=== PATIENT | male | born 1955 | race Caucasian/White ===

== ENCOUNTER 2024-05-19 14:05 | Inpatient (IN) | payer MEDICARE, OTHER ==
--- NOTE | 2024-05-19 14:50 | ED ---
Extremity Problem HPI - General Source: patient, RN notes reviewed Mode of arrival: wheelchair Limitations: no limitations <Miryam Juan - Last Filed: 05/19/24 14:48> <Ivory Carson - Last Filed: 05/19/24 16:48> - General Chief complaint: Extremity Problem,Nontraumatic Stated complaint: foot infection-Transfer Time Seen by Provider: 05/19/24 14:48 - History of Present Illness Initial comments: Quick note: 69-year-old male transferred from [place] for evaluation of left foot infection. Patient states for about 2-1/2 weeks he has been noticing a redness and infection to his left toe. Patient is not diabetic. Denies any fevers or chills. (Miryam Juan) Pt is a 69-year-old male past medical history hypertension presenting for patient. Patient [facility]. He presented there for left foot infection that has been ongoing for 2 weeks. Patient states that it started as a small sore on the top of his foot that progressed to between his toenails. He and his thought is a fungal infection and have been treating it with topical antifungal which did not improve the infection. He has noticed worsening redness and swelling of the left foot extending up to left ankle. No history of diabetes. Currently rates pain as 9 out of 10. No fevers, chills, myalgias, nausea, vomiting or diarrhea. (Ivory Carson) - Related Data Allergies Allergy/AdvReac Type Severity Reaction Status Date / Time No Known Allergies Allergy Verified 05/19/24 15:46 Review of Systems ROS Other: All systems not noted in ROS Statement are negative. <Miryam Juan - Last Filed: 05/19/24 14:48> ROS Other: All systems not noted in ROS Statement are negative. <Ivory Carson - Last Filed: 05/19/24 16:48> ROS Statement: Those systems with pertinent positive or pertinent negative responses have been documented in the HPI. Past Medical History Past Medical History: Hypertension History of Any Multi-Drug Resistant Organisms: None Reported Past Surgical History: Cholecystectomy Past Psychological History: No Psychological Hx Reported Smoking Status: Current every day smoker Past Alcohol Use History: Daily Past Drug Use History: None Reported <Miryam Juan - Last Filed: 05/19/24 14:48> General Exam Limitations: no limitations <Miryam Juan - Last Filed: 05/19/24 14:48> <Ivory Carson - Last Filed: 05/19/24 16:48> - General Exam Comments Initial Comments: Visual Physical Exam Vital signs reviewed General: Well-appearing, nontoxic, no acute distress. Head: Normocephalic, atraumatic Eyes: PERRLA, EOMI ENT: Airway patent Chest: Nonlabored breathing Skin: No visual rash, normal skin tone Neuro: Alert and oriented 3 Musculoskeletal: No gross abnormalities (Miryam Juan) PE: CONSTITUTIONAL: No apparent distress, well appearing SKIN: Warm, dry, dry gangrene across the dorsal aspect of the first metatarsal extending down to the metatarsalphalangeal joint, across the top of the foot, with surrounding brownish discoloration; erythema extending up towards knee EYES: Pupils are equally round, extraocular movements intact without nystagmus, clear conjunctiva, non-icteric sclera HENT: Normocephalic, atraumatic, moist mucus membranes, oropharynx clear without exudates NECK: , Full range of motion, normal appearance PULMONARY: Clear to auscultation without wheezes, rhonchi, or rales, normal excursion, no accessory muscle use and no stridor CARDIOVASCULAR: Regular rate, rhythm, normal S1 and S2. No appreciated murmurs, rubs or gallops. Strong radial pulse with intact distal perfusion. 2+ DP pulse present in the left lower extremity, 1-2+ pitting edema in the left lower extremity GASTROINTESTINAL: Soft, non-tender, non-distended, no palpable masses, no rebound or guarding. No hepatosplenomegaly MUSCULOSKELETAL: Dry gangrene on the dorsal aspect of the left foot as noted above, edema of the distal left lower extremity extending up towards the knee as well as erythema, otherwise extremities have no gross deformity, no edema, redness, or swelling. NEUROLOGIC:_a/o x 3, GCS 15, normal mentation and speech. Moves all extremities x 4 without motor or sensory deficit PSYCHIATRIC:_normal mood and affect, thought process is clear and linear (Ivory Carson) Course Vital Signs 05/19/24 14:08 Temperature 99.4 F Pulse Rate 86 Respiratory 20 Rate Blood Pressure 125/80 O2 Sat by Pulse 99 Oximetry Medical Decision Making <Miryam Juan - Last Filed: 05/19/24 14:48> - Lab Data Result diagrams: 05/19/24 15:39 <Ivory Carson - Last Filed: 05/19/24 16:48> - Medical Decision Making I performed the quick note portion of this chart. Electronically signed by Miryam Juan PA-C (Miryam Juan) Paper chart brought with patient from transferring facility, [facility]. X-ray performed of the left foot showed concerns for osteomyelitis in the first metatarsal. Patient was reported to have an elevated white blood cell count though I was not able to find white blood cell count on paperwork. Patient was given dose of vancomycin and sent here for further treatment Was pt. sent in by a medical professional or institution ([facility], [facility], urgent care, hospital, or intermediate...) When possible be specific @ -Sent from [facility] Did you speak to anyone other than the patient for history (EMS, parent, family, police, friend...)? What history was obtained from this source @ -With patient's assisted in providing history Did you review nursing and triage notes (agree or disagree)? Why? @ -I reviewed and agree with nursing and triage notes Were old charts reviewed (outside hosp., previous admission, EMS record, old EKG, old radiological studies, urgent care reports/EKG's, intermediate records)? Report findings @ -No old charts available for review with exception of paper chart as noted above Differential Diagnosis (chest pain, altered mental status, abdominal pain women, abdominal pain men, vaginal bleeding, weakness, fever, dyspnea, syncope, headache, dizziness, GI bleed, back pain, seizure, CVA, palpatations, mental health, musculoskeletal)? @ -Diagnosis remains broad however top considerations include cellulitis, abscess, osteomyelitis, dry gangrene this is not all-inclusive list EKG interpreted by me (3pts min.). @ -As above X-rays interpreted by me (1pt min.). @ -None done CT interpreted by me (1pt min.). @ -None done U/S interpreted by me (1pt. min.). @ -None done What testing was considered but not performed or refused? (CT, X-rays, U/S, labs)? Why? @ -None What meds were considered but not given or refused? Why? @ -None Did you discuss the management of the patient with other professionals (professionals i.e. , PA, [facility], lab, RT, psych nurse, socially responsible investment adviser, oiler bander, teacher, contracting officer, sample case porter)? Give summary @ -No Was smoking cessation discussed for >3mins.? @ -No Was critical care preformed (if so, how long)? @ -No Were there social determinants of health that impacted care today? How? (Homelessness, low income, unemployed, alcoholism, drug addiction, transportation, low edu. Level, literacy, decrease access to med. care, mcc, rehab)? @ -No Was there de-escalation of care discussed even if they declined (Discuss DNR or withdrawal of care, Hospice)? @ -No What co-morbidities impacted this encounter? (DM, HTN, Smoking, COPD, CAD, Cancer, CVA, ARF, Chemo, Hep., AIDS, mental health diagnosis, sleep apnea, morbid obesity)? @ -Hypertension Was patient admitted / discharged? Hospital course, mention meds given and route, prescriptions, significant lab abnormalities, going to OR and other pertinent info. @Admission - Patient is a previously healthy 57-year-old male presenting as a transfer from [facility] due to concerns for osteomyelitis in the le ft foot. On my assessment patient is nontoxic and well-appearing. Dry gangrene visible on the dorsal aspect of the left foot. Extremity is neurovascularly intact, tender and edematous. Ordered additional dose vancomycin, cefepime, inflammatory markers CBC and CMP as well as pain control. Plan for admission. Patient agreeable with plan. I discussed with ANITA Whitehead who accepts for admission. Undiagnosed new problem with uncertain prognosis? @ -No Drug Therapy requiring intensive monitoring for toxicity (Heparin, Nitro, Insulin, Cardizem)? @ -Vancomycin Were any procedures done? @ -No Diagnosis/symptom? @ -Osteomyelitis Acute, or Chronic, or Acute on Chronic? @ -Acute Uncomplicated (without systemic symptoms) or Complicated (systemic symptoms)? @Complicated Side effects of treatment? @ -No Exacerbation, Progression, or Severe Exacerbation? @ -No Poses a threat to life or bodily function? How? (Chest pain, [place], [place], pneumonia, PE, COPD, DKA, ARF, appy, cholecystitis, CVA, Diverticulitis, Homicidal, Suicidal, threat to staff... and all critical care pts) @ -[Yes, if allowed to progress patient could lose left lower extremity, sepsis (Ivory Carson) - Lab Data Lab Results 05/19/24 Range/Units 15:39 WBC 11.6 H (3.8-10.6) k/uL RBC 4.16 L (4.30-5.90) m/uL Hgb 13.2 (13.0-17.5) gm/dL Hct 39.1 (39.0-53.0) % MCV 94.1 (80.0-100.0) fL MCH 31.7 (25.0-35.0) pg MCHC 33.7 (31.0-37.0) g/dL RDW 12.2 (11.5-15.5) % Plt Count 472 H (150-450) k/uL MPV 6.5 Neutrophils % 76 % Lymphocytes % 11 % Monocytes % 10 % Eosinophils % 1 % Basophils % 0 % Neutrophils # 8.7 H (1.3-7.7) k/uL Lymphocytes # 1.3 (1.0-4.8) k/uL Monocytes # 1.1 H (0-1.0) k/uL Eosinophils # 0.1 (0-0.7) k/uL Basophils # 0.0 (0-0.2) k/uL Disposition <Miryam Juan - Last Filed: 05/19/24 14:48> <Ivory Carson - Last Filed: 05/19/24 16:48> Clinical Impression: Osteomyelitis Disposition: ADMITTED IP TO THIS HOSP Condition: Stable Referrals: Valentin Manrique MD [Primary Care Provider] - 1-2 days
[2024-05-19] MEDS ORDERED: VANCOMYCIN IV PER PHARMACY 1 EACH MISC MISCELLANE PRN (15:41)
[2024-05-19] MEDS: ONDANSETRON 4 MG/2 ML VIAL IVP STA (15:53)
[2024-05-19] MEDS: MORPHINE SULFATE 4 MG/ML SYRINGE IVP STA (15:56)
[2024-05-19] MEDS: KETOROLAC 15 MG/ML 1 ML VIAL IVP STA (15:58)
[2024-05-19] MEDS: CEFEPIME 2 GM in SODIUM CHLORIDE 0.9% 100 ML IVPB ONE (16:03)
[2024-05-19 16:25] LABS: Basophils % (A) 0 %; Eosinophils # (A) 0.1 k/uL (0-0.7); Eosinophils % (A) 1 %; HCT 39.1 % (39.0-53.0); HGB 13.2 gm/dL (13.0-17.5); Lymphocytes # (A) 1.3 k/uL (1.0-4.8); Lymphocytes % (A) 11 %; MCH 31.7 pg (25.0-35.0); MCHC 33.7 g/dL (31.0-37.0); MCV 94.1 fL (80.0-100.0); Mean Platelet Volume 6.5; Monocytes # (A) 1.1 k/uL (0-1.0); Monocytes % (A) 10 %; Neutrophils # (A) 8.7 k/uL (1.3-7.7); Neutrophils % (A) 76 %; Platelet Count 472 k/uL (150-450); RBC 4.16 m/uL (4.30-5.90); RDW 12.2 % (11.5-15.5); WBC 11.6 k/uL (3.8-10.6)
[2024-05-19 16:42] LABS: ALT 17 U/L (4-49); AST 27 U/L (17-59); African American GFR (CKD) >90 (>60 ml/min/1.73 sqM); Albumin 4.2 g/dL (3.5-5.0); Alkaline Phosphatase 80 U/L (38-126); Anion Gap 10 mmol/L; Blood Urea Nitrogen 10 mg/dL (9-20); Calcium 9.5 mg/dL (8.4-10.2); Carbon Dioxide 17 mmol/L (22-30); Chloride 100 mmol/L (98-107); Glucose 99 mg/dL (74-99); Non-African American GFR(CKD) >90 (>60 ml/min/1.73 sqM); Potassium 5.1 mmol/L (3.5-5.1); Sodium 127 mmol/L (137-145); Total Bilirubin 0.7 mg/dL (0.2-1.3)
[2024-05-19 16:57] LABS: C Reactive Protein 3.4 mg/dL (<1.0)
[2024-05-19] MEDS: VANCOMYCIN 1,500 MG in SODIUM CHLORIDE 0.9% 500 ML 500 ML IVPB STA (17:16)
[2024-05-19] MEDS: NICOTINE 14MG/24HR PATCH TRANSDERM SCH (17:16)
[2024-05-19] MEDS ORDERED: NALOXONE 0.4 MG/ML 1 ML VIAL IV PRN (17:37)
[2024-05-19] MEDS: HEPARIN SODIUM,PORCINE 5,000 UNIT/ML 1 ML VIAL SQ SCH (20:10)
[2024-05-19] MEDS: CEFEPIME 2 GM in SODIUM CHLORIDE 0.9% 100 ML IVPB SCH (22:37)
[2024-05-19] MEDS: HYDROcodone/APAP 5-325MG 1 EACH TAB PO PRN (22:39)
[2024-05-20 03:47] LABS: Erythrocyte Sedimentation Rate 43 mm/Hr (0-20)
[2024-05-20] MEDS: VANCOMYCIN 1,500 MG in SODIUM CHLORIDE 0.9% 500 ML 500 ML IVPB SCH (05:59)
[2024-05-20] MEDS ORDERED: ACETAMINOPHEN TAB 500 MG TAB PO PRN (07:46)
[2024-05-20] MEDS: amLODIPine 10 MG TAB PO SCH (08:40)
[2024-05-20 08:47] LABS: Basophils # (A) 0.07 X 10*3/uL (0.00-0.10); Eosinophils # (A) 0.18 X 10*3/uL (0.04-0.35); Eosinophils % (A) 2.5 %; HCT 35.2 % (39.6-50.0); HGB 12.3 g/dL (13.0-17.0); Lymphocytes # (A) 1.46 X 10*3/uL (0.90-5.00); Lymphocytes % (A) 20.3 %; MCH 31.9 pg (27.0-32.0); MCHC 34.9 g/dL (32.0-37.0); MCV 91.4 FL (80.0-97.0); Mean Platelet Volume 8.5 FL (9.5-12.2); Monocytes # (A) 1.18 X 10*3/uL (0.20-1.00); Monocytes % (A) 16.4 %; NRBC Per 100 WBC 0 X 10*3/uL (0.00-0.01); Neutrophils # (A) 4.28 X 10*3/uL (1.80-7.70); Neutrophils % (A) 59.4 %; Platelet Count 412 X 10*3/uL (140-440); RBC 3.85 X 10*6/uL (4.40-5.60)
--- NOTE | 2024-05-20 09:11 | P.CONS ---
History of Present Illness - Reason for Consult Consult date: 05/19/24 Cellulitis Requesting physician: Khanh Quinones - Chief Complaint Left big toe and foot swelling and discoloration x 2 weeks - History of Present Illness Patient is a 69-year-old male with a past medical history significant for hypertension current everyday smoker and this patient has been dealing with a left big toe nail fungal infection that subsequently fell off however the patient has been dealing with the left big toe discoloration with some swelling and redness that seem to be extending from the left big toe to the dorsal aspect of the left foot patient symptom has been going on for about 2-1/2 weeks patient denies any history of any trauma he did have dull aching pain at times sharp moderate intensity without radiation did have minimal drainage main concern has been discoloration and redness along with some drainage denies high-grade fever on presentation to the hospital the patient did have a low-grade fever of 99.4 F patient was nontachycardic hypotensive or hypoxic he did have white count of 11.6 with a left shift creatinine 0.67 electrolytes are normal liver enzymes normal patient has been started on vancomycin and cefepime infectious disease was consulted for further management of antibiotic therapy Review of Systems Positive point and negatives has been mentioned in the HPI, complete review of systems was performed and all other systems are negative Past Medical History Past Medical History: Hypertension History of Any Multi-Drug Resistant Organisms: None Reported Past Surgical History: Cholecystectomy Past Psychological History: No Psychological Hx Reported Smoking Status: Current every day smoker Past Alcohol Use History: Daily Past Drug Use History: None Reported Medications and Allergies Home Medications Medication Instructions Recorded Confirmed Type Acetaminophen Tab [Tylenol Tab] 1,000 mg PO Q6HR PRN 05/19/24 05/19/24 History Aleve Back & Muscle Pain 1 tab PO BID 05/19/24 05/19/24 History Ascorbic Acid [Vitamin C] 500 mg PO W/SUPPER 05/19/24 05/19/24 History Cholecalciferol [Vitamin D3 (25 25 mcg PO W/SUPPER 05/19/24 05/19/24 History Mcg = 1000 Iu)] Elderberry(Unknown Dose) 1 tab PO W/SUPPER 05/19/24 05/19/24 History Magnesium Oxide [Magnesium] 500 mg PO W/SUPPER 05/19/24 05/19/24 History Mv-Min/Folic/K1/Lycopen/Lutein 1 tab PO W/SUPPER 05/19/24 05/19/24 History [Centrum Silver Men Tablet] Zinc Gluconate [Zinc] 50 mg PO W/SUPPER 05/19/24 05/19/24 History amLODIPine [Norvasc] 10 mg PO DAILY 05/19/24 05/19/24 History lisinopriL 40 mg PO HS 05/19/24 05/19/24 History Allergies Allergy/AdvReac Type Severity Reaction Status Date / Time No Known Allergies Allergy Verified 05/19/24 15:46 Physical Exam Vitals: Vital Signs Temp Pulse Resp BP Pulse Ox 05/19/24 14:08 99.4 F 86 20 125/80 99 Intake and Output 05/19/24 05/19/24 05/19/24 06:59 14:59 22:59 Other: Weight 78.925 kg GENERAL DESCRIPTION: Elderly male lying in bed, no distress. No tachypnea or accessory muscle of respiration use. HEENT: Shows Pallor , no scleral icterus. Oral mucous membrane is dry. No ph aryngeal erythema or thrush NECK: Trachea central, no thyromegaly. LUNGS: Unlabored breathing. Clear to auscultation anteriorly. No wheeze or crackle. HEART: S1, S2, regular rate and rhythm. No loud murmur ABDOMEN: Soft, no tenderness , guarding or rigidity, no organomegaly EXTREMITIES: Left great toe dorsum did have a dried out skin he did have maceration in the first toe web and minimal erythema SKIN: No rash, no masses palpable. NEUROLOGICAL: The patient is awake, alert, oriented x3, mood and affect normal. Results CBC & Chem 7: 05/20/24 02:39 05/19/24 15:39 Labs: Abnormal Lab Results - Last 24 Hours (Table) 05/19/24 05/19/24 Range/Units 15:39 15:39 WBC 11.6 H (3.8-10.6) k/uL RBC 4.16 L (4.30-5.90) m/uL Plt Count 472 H (150-450) k/uL Neutrophils # 8.7 H (1.3-7.7) k/uL Monocytes # 1.1 H (0-1.0) k/uL Sodium 127 L (137-145) mmol/L Carbon Dioxide 17 L (22-30) mmol/L C-Reactive Protein 3.4 H (<1.0) mg/dL Assessment and Plan (1) Cellulitis of left foot Current Visit: Yes Status: Acute Code(s): L03.116 - CELLULITIS OF LEFT LOWER LIMB SNOMED Code(s): 47329674372949210 Plan: 1patient presenting to the hospital with the left foot big toe dorsal ulceration and concern for cellulitis that has been going on for the last 2 weeks we will need to cover for the gram-positive skin sha and less likely gram-negative infection. 2await vascular surgery evaluation for debridement and deep culture. 3vancomycin pharmacy to dose target trough of 15 while watching kidney function and Vanco trough closely and cefepime should provide adequate broad- spectrum antibiotic coverage while waiting for the workup to be completed. 4-nystatin powder between the toe webs We will follow on clinical condition and cultures to further adjust medication if needed Thank you for this consultation we will follow the patient along with you Dictation was produced using [employer] dictation software. please excuse any grammatical, word or spelling errors. Time with Patient: Greater than 30
[2024-05-20 09:56] LABS: BUN/Creat Ratio 13.12 Ratio (12.00-20.00); Blood Urea Nitrogen 10.5 mg/dL (9.0-27.0); Chloride 100 mmol/L (96-109); Glucose 93 mg/dL (70-110); Potassium 4.8 mmol/L (3.5-5.5); Sodium 132 mmol/L (135-145)
[2024-05-20 10:18] LABS: Basophils % (A) 0 %; Eosinophils # (A) 0.1 k/uL (0-0.7); Eosinophils % (A) 1 %; HCT 37.1 % (39.0-53.0); HGB 12.5 gm/dL (13.0-17.5); Lymphocytes # (A) 1.2 k/uL (1.0-4.8); Lymphocytes % (A) 12 %; MCH 31.4 pg (25.0-35.0); MCHC 33.7 g/dL (31.0-37.0); MCV 93.3 fL (80.0-100.0); Monocytes % (A) 10 %; Neutrophils # (A) 7.6 k/uL (1.3-7.7); Neutrophils % (A) 76 %; Platelet Count 417 k/uL (150-450); RBC 3.98 m/uL (4.30-5.90); RDW 12.8 % (11.5-15.5)
--- NOTE | 2024-05-20 12:25 | P.GSCN ---
History of Present Illness Consult date: 05/20/24 Reason for Consult: Left foot wound Requesting physician: Brandon Park History of present illness: This a pleasant 69-year-old male who was transferred from [facility] with concerns of a left foot infection. He has a past medical history including hypertension, arthritis, and current half pack per day smoker for greater than 50 years. He states he believes infection started 2 to 3 months ago when he was having issues with yeast at his great toenail which eventually had fallen off. He later noticed area in between his great toe and second toe which again he just thought was more of an athlete's foot, fungal infection. States that him and his had been treating it with Epsom salt soaks and even Listerine as they thought that this was all secondary to fungal infection. Left foot was becoming more red, swollen painful and area of wound was increasing. He became concerned and went to [facility]. He was seen there and and transferred to this facility for further evaluation and workup. He denies any fevers or chills. States foot is painful. Has had lower extremity swelling. Denies any previous history of known peripheral arterial disease. Patient was seen by infectious disease who consulted with vascular surgery for surgical debridement and deep tissue cultures. Patient is currently on IV vancomycin and cefepime. He did have low-grade fever on admission of 99.4, he has been afebrile since. Admitting labs presented with leukocytosis, now resolved. Review of Systems A 14 point review systems was completed all pertinent positives and negatives as stated in the HPI. Past Medical History Past Medical History: Hypertension History of Any Multi-Drug Resistant Organisms: None Reported Past Surgical History: Cholecystectomy Past Psychological History: No Psychological Hx Reported Smoking Status: Current every day smoker Past Alcohol Use History: Daily Past Drug Use History: None Reported Medications and Allergies Home Medications Medication Instructions Recorded Confirmed Type Acetaminophen Tab [Tylenol Tab] 1,000 mg PO Q6HR PRN 05/19/24 05/19/24 History Aleve Back & Muscle Pain 1 tab PO BID 05/19/24 05/19/24 History Ascorbic Acid [Vitamin C] 500 mg PO W/SUPPER 05/19/24 05/19/24 History Cholecalciferol [Vitamin D3 (25 25 mcg PO W/SUPPER 05/19/24 05/19/24 History Mcg = 1000 Iu)] Elderberry(Unknown Dose) 1 tab PO W/SUPPER 05/19/24 05/19/24 History Magnesium Oxide [Magnesium] 500 mg PO W/SUPPER 05/19/24 05/19/24 History Mv-Min/Folic/K1/Lycopen/Lutein 1 tab PO W/SUPPER 05/19/24 05/19/24 History [Centrum Silver Men Tablet] Zinc Gluconate [Zinc] 50 mg PO W/SUPPER 05/19/24 05/19/24 History amLODIPine [Norvasc] 10 mg PO DAILY 05/19/24 05/19/24 History lisinopriL 40 mg PO HS 05/19/24 05/19/24 History Allergies Allergy/AdvReac Type Severity Reaction Status Date / Time No Known Allergies Allergy Verified 05/19/24 15:46 Surgical - Exam Vital Signs Temp Pulse Resp BP Pulse Ox 99.4 F 86 20 125/80 99 05/19/24 14:08 05/19/24 14:08 05/19/24 14:08 05/19/24 14:08 05/19/24 14:08 General appearance: The patient is alert, oriented, appears in no acute distr ess. HET: Head is normocephalic and atraumatic. Pupils are equal and reactive. Neck: Supple. Heart: Regular. Lungs: Equal expansion, normal respiratory effort. Abdomen: Soft, nontender, nondistended. Extremities: Right lower extremity without any swelling or edema, warm to the touch with palpable DP and PT pulse. Left lower extremity with +1-2 pitting edema, erythema with wound with nonviable tissue over dorsal aspect of foot and in between great toe and second toe with drainage. Great toe is cool to the touch, dusky. Foot is tender to palpation. Nonpalpable PT and DP pulse. Doppler signals present. Neurological: No focal deficits. Strength and sensation are grossly intact. Results - Labs 05/20/24 09:39 05/20/24 02:39 Abnormal Lab Results - Last 24 Hours (Table) 05/19/24 05/19/24 05/20/24 Range/Units 15:39 15:39 02:39 WBC 11.6 H (3.8-10.6) k/uL RBC 4.16 L 3.85 L (4.30-5.90) m/uL Hgb 12.3 L (13.0-17.0) g/dL Hct 35.2 L (39.6-50.0) % Plt Count 472 H (150-450) k/uL MPV 8.5 L (9.5-12.2) FL Neutrophils # 8.7 H (1.3-7.7) k/uL Monocytes # 1.1 H 1.18 H (0-1.0) k/uL ESR 43 H (0-20) mm/Hr Sodium 127 L (137-145) mmol/L Carbon Dioxide 17 L (22-30) mmol/L C-Reactive Protein 3.4 H (<1.0) mg/dL 05/20/24 05/20/24 Range/Units 02:39 09:39 WBC (3.8-10.6) k/uL RBC 3.98 L (4.30-5.90) m/uL Hgb 12.5 L (13.0-17.0) g/dL Hct 37.1 L (39.6-50.0) % Plt Count (150-450) k/uL MPV (9.5-12.2) FL Neutrophils # (1.3-7.7) k/uL Monocytes # (0-1.0) k/uL ESR (0-20) mm/Hr Sodium 132 L (137-145) mmol/L Carbon Dioxide 21.0 L (22-30) mmol/L C-Reactive Protein (<1.0) mg/dL Microbiology - Last 24 Hours (Table) 05/19/24 16:12 Gram Stain - Preliminary Foot - Left Diabetes panel 05/19/24 05/20/24 Range/Units 15:39 02:39 Sodium 127 L 132 L (137-145) mmol/L Potassium 5.1 4.8 (3.5-5.1) mmol/L Chloride 100 100 (98-107) mmol/L Carbon Dioxide 17 L 21.0 L (22-30) mmol/L BUN 10 10.5 (9-20) mg/dL Creatinine 0.67 0.8 (0.66-1.25) mg/dL Glucose 99 93 (74-99) mg/dL Calcium 9.5 9.0 (8.4-10.2) mg/dL AST 27 (17-59) U/L ALT 17 (4-49) U/L Alkaline Phosphatase 80 (38-126) U/L Total Protein 7.0 (6.3-8.2) g/dL Albumin 4.2 (3.5-5.0) g/dL Calcium panel 05/19/24 05/20/24 Range/Units 15:39 02:39 Calcium 9.5 9.0 (8.4-10.2) mg/dL Albumin 4.2 (3.5-5.0) g/dL Pituitary panel 05/19/24 05/20/24 Range/Units 15:39 02:39 Sodium 127 L 132 L (137-145) mmol/L Potassium 5.1 4.8 (3.5-5.1) mmol/L Chloride 100 100 (98-107) mmol/L Carbon Dioxide 17 L 21.0 L (22-30) mmol/L BUN 10 10.5 (9-20) mg/dL Creatinine 0.67 0.8 (0.66-1.25) mg/dL Glucose 99 93 (74-99) mg/dL Calcium 9.5 9.0 (8.4-10.2) mg/dL Adrenal panel 05/19/24 05/20/24 Range/Units 15:39 02:39 Sodium 127 L 132 L (137-145) mmol/L Potassium 5.1 4.8 (3.5-5.1) mmol/L Chloride 100 100 (98-107) mmol/L Carbon Dioxide 17 L 21.0 L (22-30) mmol/L BUN 10 10.5 (9-20) mg/dL Creatinine 0.67 0.8 (0.66-1.25) mg/dL Glucose 99 93 (74-99) mg/dL Calcium 9.5 9.0 (8.4-10.2) mg/dL Total Bilirubin 0.7 (0.2-1.3) mg/dL AST 27 (17-59) U/L ALT 17 (4-49) U/L Alkaline Phosphatase 80 (38-126) U/L Total Protein 7.0 (6.3-8.2) g/dL Albumin 4.2 (3.5-5.0) g/dL Assessment and Plan Assessment: 1. Nonhealing infected left foot wound 2. Left lower extremity cellulitis 3. Chronic tobacco use 4. Hypertension Plan: 1. Make n.p.o. 2. Will order ABIs 3. Plan for left foot surgical debridement with deep tissue cultures with possible left great toe amputation today 4. Recommend smoking cessation, patient currently has nicotine patches ordered 5. Continue with antibiotic recommendations per infectious disease Thank you for this consultation, we will continue to follow. The impression and plan of care has been dictated as directed. I performed a history and examination of this patient, discussed the same with the dictator. I agree with the dictator's note ,documented as a scribe. Any additional findings or plans will be noted.
[2024-05-20] MEDS: HYDROmorphone 0.5 MG/0.5 ML SYRINGE IVP PRN ×2 (12:57→17:00)
--- NOTE | 2024-05-20 14:13 | P.HPIM ---
History of Present Illness H&P Date: 05/20/24 Patient is a 69-year-old male with past medical history of hypertension presented to the emergency department due to left foot infection. He states that he has had ongoing redness and infection in his left great toe for 2.5 weeks. He states that it started as a small sore on the top of his foot that progressed to between his first and second toes. Him and his have been treating it with topical antifungal with no relief. He endorses worsening redness and swelling of the left foot extending up to the left mid-leg and dull, aching pain without radiation. He ambulates well normally with a cane and has full sensation of his feet. He denies fever, chills, nausea, vomiting, chest pain, dyspnea. No images were obtained. WBCs 11.6, hemoglobin 13.2, platelets 472, ESR 43, sodium 127, potassium 5.1, CO2 17, creatinine 0.67, CRP 3.4. Afebrile, normotensive, saturating well on room air. ED documentation reviewed. Review of systems: Pertinent positives and negatives as discussed in HPI, a complete review of systems was performed and all other systems are negative. Family history: Unsure of his family history Social history: Tobacco: Everyday smoker 1/2 ppd 50 years Alcohol: Daily 4-5 beers Recreational drugs: Denies Travel: Denies Occupation: Retired Physical examination: Vital signs are reviewed. General: No acute distress. AOx4. HEENT: Head exam is unremarkable. EOMI bilaterally. ACs patent. Nares patent. Lungs: Bilateral breath sounds present; no rhonchi, wheezes, or rales. Heart: Rate and rhythm are regular. S1-S2 present. No murmur/rub/gallops. Abdomen: Soft, nontender, nondistended. Bowel sounds present. Extremities: No edema present on the right lower extremity. Symmetric movement. Left foot wrapped-dry gangrene on the dorsal sole aspect of the left foot reported, edema of the left lower extremity extending towards the knee with erythema. Psych: Normal affect and mood. Cooperative. Assessment/Plan: Cellulitis Nonhealing left foot wound Vancomycin and cefepime started Monitor CBC/BMP Vascular surgery consulted Infectious disease following Hypertension Continue home medications DVT prophylaxis: Heparin Chronic conditions: Hypertension The patient is admitted with an anticipated more than than 2 midnight stay for evaluation of cellulitis CODE STATUS: Full code Discussed with: Patient Anticipated discharge place: Home Past Medical History Past Medical History: Hypertension History of Any Multi-Drug Resistant Organisms: None Reported Past Surgical History: Cholecystectomy Past Psychological History: No Psychological Hx Reported Smoking Status: Current every day smoker Past Alcohol Use History: Daily Past Drug Use History: None Reported Medications and Allergies Home Medications Medication Instructions Recorded Confirmed Type Acetaminophen Tab [Tylenol Tab] 1,000 mg PO Q6HR PRN 05/19/24 05/19/24 History Aleve Back & Muscle Pain 1 tab PO BID 05/19/24 05/19/24 History Ascorbic Acid [Vitamin C] 500 mg PO W/SUPPER 05/19/24 05/19/24 History Cholecalciferol [Vitamin D3 (25 25 mcg PO W/SUPPER 05/19/24 05/19/24 History Mcg = 1000 Iu)] Elderberry(Unknown Dose) 1 tab PO W/SUPPER 05/19/24 05/19/24 History Magnesium Oxide [Magnesium] 500 mg PO W/SUPPER 05/19/24 05/19/24 History Mv-Min/Folic/K1/Lycopen/Lutein 1 tab PO W/SUPPER 05/19/24 05/19/24 History [Centrum Silver Men Tablet] Zinc Gluconate [Zinc] 50 mg PO W/SUPPER 05/19/24 05/19/24 History amLODIPine [Norvasc] 10 mg PO DAILY 05/19/24 05/19/24 History lisinopriL 40 mg PO HS 05/19/24 05/19/24 History Allergies Allergy/AdvReac Type Severity Reaction Status Date / Time No Known Allergies Allergy Verified 05/19/24 15:46 Physical Exam Vitals: Vital Signs Temp Pulse Pulse Resp BP BP Pulse Ox 05/20/24 01:04 97.7 F 74 16 144/72 96 05/19/24 21:03 98.5 F 67 17 124/62 94 L 05/19/24 18:42 99.1 F 77 16 108/62 97 05/19/24 14:08 99.4 F 86 20 125/80 99 Intake and Output 05/19/24 05/20/24 05/20/24 22:59 06:59 14:59 Other: Voiding Method Toilet # Voids 1 Weight 78.925 kg Results CBC & Chem 7: 05/20/24 09:39 05/20/24 02:39 Labs: Abnormal Lab Results - Last 24 Hours (Table) 05/19/24 05/19/24 Range/Units 15:39 15:39 WBC 11.6 H (3.8-10.6) k/uL RBC 4.16 L (4.30-5.90) m/uL Plt Count 472 H (150-450) k/uL Neutrophils # 8.7 H (1.3-7.7) k/uL Monocytes # 1.1 H (0-1.0) k/uL ESR 43 H (0-20) mm/Hr Sodium 127 L (137-145) mmol/L Carbon Dioxide 17 L (22-30) mmol/L C-Reactive Protein 3.4 H (<1.0) mg/dL Thrombosis Risk Factor Assmnt - Choose All That Apply Any of the Below Risk Factors Present?: No Other Risk Factors: No Other congenital or acquired thrombophilia - If yes, enter type in comment: No Thrombosis Risk Factor Assessment Level: Very Low Risk
--- NOTE | 2024-05-20 14:51 | HP ---
HISTORY AND PHYSICAL CHIEF COMPLAINT: Pain and swelling, infection of the left foot. HISTORY OF PRESENT ILLNESS: This is a 69-year-old gentleman with a past medical history of hypertension, was noted to have a fungal infection of the great toe on the left side. The patient has noted increasing pain and swelling and erythema for the last several days and the patient and family used some socks including antibacterial antifungal solutions. Because of lack of improvement, the patient was referred and the patient is being admitted for further evaluation and treatment. There is no history of any fever, rigors, or chills at this time. The patient has history of EtOH and smoking also. PAST MEDICAL HISTORY: Hypertension. Rest of the history and rest of the chart is also reviewed. HOME MEDICATIONS: Reviewed include lisinopril. Dose and rest of the medications noted. ALLERGIES: None. FAMILY HISTORY: No history of heart disease or strokes in the family. SOCIAL HISTORY: History of alcohol and smoking as mentioned earlier. REVIEW OF SYSTEMS: Fourteen-point review is negative except as mentioned earlier. PHYSICAL EXAMINATION: VITAL SIGNS: Pulse is 86, blood pressure 110/80, respirations 20. HEENT: Conjunctivae normal. NECK: No JVD. CARDIOVASCULAR: S1, S2. RESPIRATIONS: Breath sounds diminished at the bases. No rhonchi. No crackles. ABDOMEN: Soft, nontender. LEGS: Significant pain and swelling and erythema, tenderness and hyperesthesia of the left foot present. SKIN: As mentioned earlier. JOINTS: No active deforming arthropathy. LABORATORY DATA: Awaited. ASSESSMENT: 1. Severe left foot infection with failure of outpatient treatment. 2. Hypertension. 3. History of nicotine dependence. 4. History of EtOH. RECOMMENDATIONS AND DISCUSSION: Recommend to continue current management and continue symptomatic treatment. Continue broad-spectrum IV antibiotics. Infectious Disease, and Surgical and Vascular evaluations. Guarded prognosis. Further recommendations to follow. See orders for further details. MMODL / IJN: [id number] /
[2024-05-20] MEDS: IV FLUID CONTINUATION 1,000 ML IV ONE (15:19)
[2024-05-20] MEDS: LACTATED RINGERS 1,000 ML BAG IV STA (15:26)
[2024-05-20] MEDS: DEXAMETHASONE SOD PHOSPHATE 4 MG/ML 1 ML VIAL IVP STA (15:29)
--- NOTE | 2024-05-20 15:42 | P.PN ---
Subjective Progress Note Date: 05/20/24 Principal diagnosis: Reason for follow-up is left big toe and foot cellulitis Patient is a 69-year-old male with a past medical history significant for hypertension current everyday smoker and this patient has been dealing with a left big toe nail fungal infection that subsequently fell off however the patient has been dealing with the left big toe discoloration with some swelling and redness, admitted to hospital with cellulitis left big toe. On today's evaluation that is 05/20/2024, the patient continues to be afebrile, the patient is on room air and breathing comfortably, the Pt denies having any chest pain or cough, the patient denies having any abdominal pain no vomiting or any diarrhea has been reported by the nursing staff denies any worsening pain to the left big toe. Patient white count is 10.0 creatinine 0.8 cultures currently pending Objective - Vital Signs Vital signs: Vital Signs Temp 97.8 F 05/20/24 12:51 Pulse 88 05/20/24 12:51 Resp 17 05/20/24 12:51 BP 145/77 05/20/24 12:51 Pulse Ox 98 05/20/24 12:51 FiO2 Intake & Output 05/19/24 05/20/24 05/20/24 18:59 06:59 18:59 Weight 78.925 kg 78.925 kg Other: Voiding Method Toilet # Voids 1 4 - Exam GENERAL DESCRIPTION: An elderly male lying in bed in no distress RESPIRATORY SYSTEM: Unlabored breathing , decreased breath sounds at bases HEART: S1 S2 regular rate and rhythm , ABDOMEN: Soft , no tenderness EXTREMITIES: Left big toe dorsum aspect did have a discoloration from erythema - Labs CBC & Chem 7: 05/20/24 09:39 05/20/24 02:39 Labs: Abnormal Lab Results - Last 24 Hours (Table) 05/19/24 05/19/24 05/20/24 Range/Units 15:39 15:39 02:39 WBC 11.6 H (3.8-10.6) k/uL RBC 4.16 L 3.85 L (4.30-5.90) m/uL Hgb 12.3 L (13.0-17.0) g/dL Hct 35.2 L (39.6-50.0) % Plt Count 472 H (150-450) k/uL MPV 8.5 L (9.5-12.2) FL Neutrophils # 8.7 H (1.3-7.7) k/uL Monocytes # 1.1 H 1.18 H (0-1.0) k/uL ESR 43 H (0-20) mm/Hr Sodium 127 L (137-145) mmol/L Carbon Dioxide 17 L (22-30) mmol/L C-Reactive Protein 3.4 H (<1.0) mg/dL 05/20/24 05/20/24 Range/Units 02:39 09:39 WBC (3.8-10.6) k/uL RBC 3.98 L (4.30-5.90) m/uL Hgb 12.5 L (13.0-17.0) g/dL Hct 37.1 L (39.6-50.0) % Plt Count (150-450) k/uL MPV (9.5-12.2) FL Neutrophils # (1.3-7.7) k/uL Monocytes # (0-1.0) k/uL ESR (0-20) mm/Hr Sodium 132 L (137-145) mmol/L Carbon Dioxide 21.0 L (22-30) mmol/L C-Reactive Protein (<1.0) mg/dL Microbiology - Last 24 Hours (Table) 05/19/24 16:12 Gram Stain - Preliminary Foot - Left Assessment and Plan (1) Cellulitis of left foot Current Visit: Yes Status: Acute Code(s): L03.116 - CELLULITIS OF LEFT LOWER LIMB SNOMED Code(s): 29936180235911616 Plan: 1patient presenting to the hospital with the left foot big toe dorsal ulceration and concern for cellulitis that has been going on for the last 2 weeks we will need to cover for the gram-positive skin sha and less likely gram-negative infection. 2await vascular surgery evaluation for debridement and deep culture, scheduled for this afternoon 3patient to continue with vancomycin pharmacy to dose target trough of 15 while watching kidney function and and cefepime while waiting for the culture to finalize 4-nystatin powder inbetween the toe webs Dictation was produced using [employer] dictation software. please excuse any grammatical, word or spelling errors. Time with Patient: Less than 30
[2024-05-20] MEDS ORDERED: ePHEDrine 50 MG/ML 1 ML VIAL ONE (15:56)
[2024-05-20] MEDS ORDERED: MIDAZOLAM 2 MG/2 ML VIAL ONE (15:56)
[2024-05-20] MEDS ORDERED: PROPOFOL 10 MG/ML 20 ML VIAL IV ONE (15:56)
[2024-05-20] MEDS ORDERED: fentaNYL (PF) 50 MCG/ML 2 ML AMP ONE (15:56)
[2024-05-20] MEDS ORDERED: GLYCOPYRROLATE 0.2 MG/ML 2 ML VIAL ONE (15:56)
[2024-05-20] MEDS ORDERED: LIDOCAINE 1% INJ 10MG/ML (20 ML MDV) ONE (15:56)
[2024-05-20] MEDS ORDERED: ONDANSETRON 4 MG/2 ML VIAL ONE (15:56)
[2024-05-20] MEDS: BUPIVACAINE (PF) 0.25% 30 ML VIAL SQ ONE ×2 (16:15→16:19)
--- NOTE | 2024-05-20 17:11 | P.OP ---
Date of Procedure: 05/20/24 Description of Procedure: SURGEON: Katie Lu DO WIRE RIGGER: None PREOPERATIVE DIAGNOSIS: [Left great toe ischemia, gangrene]. POSTOPERATIVE DIAGNOSIS: [Same, diminished blood flow]. OPERATION: Left great toe amputation. ANESTHESIA: LMA ESTIMATED BLOOD LOSS: 3 cc SPECIMENS REMOVED: Left great toe, culture COMPLICATIONS: None OPERATIVE FINDINGS: Patient is a 69-year-old male who reportedly had a fungal infection of his great toenail and has been using home remedies subsequently fell off and he began having issues with pain and further worsening of his wound therefore he decided to come into the ER and was sent here for evaluation of this. Given the appearance of the toe the recommendation was to go forward with at least debridement and potential first toe amputation. Risks and benefits were discussed. He seemingly understood and was willing to proceed. DESCRIPTION OF PROCEDURE: This patient was brought to the operating room, and given appropriate anesthesia the operative foot was prepped and draped in sterile manner. Initial attempts were made for debridement however the eschar itself was contracted down onto the level of the bone and debridement was performed without significant blood flow therefore the decision was made to go forward with amputation of the great toe. An incision was made at the base of the first toe deep into skin and fascia on plantar and dorsal aspect until we reached the head of the metatarsal bone. The head of the metatarsal was from the first toe and transected. The tendons were divided in plantar and dorsal aspects. The first toe was removed. There were minimal bleeding points which were electrocoagulated Base of the wound looked clean, and the wound was copiously irrigated with saline. The wound was left open at this point. Dressings were placed. The patient tolerated the procedure well.
[2024-05-20] MEDS: CEFEPIME 2 GM in SODIUM CHLORIDE 0.9% 100 ML IVPB SCH (18:28)
[2024-05-20] MEDS: lisinopriL 20 MG TAB PO SCH (20:00)
[2024-05-21] MEDS ORDERED: HYDROcodone/APAP 5-325MG 1 EACH TAB ONE (05:25)
[2024-05-21] MEDS: HYDROmorphone 1 MG/ML 1 ML SYRINGE IVP STA (08:39)
--- NOTE | 2024-05-21 10:00 | US ---
EXAMINATION TYPE: US arterial LE multi level DATE OF EXAM: 05/20/2024 11:22 AM Exam done portable CLINICAL INDICATION: Male, 69 years old with history of Left lower extremity wound with nonpalpable p ulses; Left great toe removed 1 day ago History of: Smoker: Current Hypertension: Yes Diabetic: No Hyperlipidemia: No TIA/CVA: No Previous Vascular Surgery: No [place]: No Difficult and limited study due to patient unable to stay still for testing Doppler Waveforms: Right: Multiphasic Left: Monophasic Pulse Volume Recording: Pressure Gradients: Right Brachial Pressure: 122 Left Brachial Pressure: deferred due to IV site Ankle-Brachial Indices: Right: 1.1 Left: 0.75 (Vessel hardening > 1.4; Normal 0.9 - 1.4, Moderate 0.7 - 0.9, Severe 0.5-0.7) IMPRESSION: 1. Abnormal FARRUKH left lower extremity. Findings are suggestive of severe to critical atherosclerotic c hanges of the left lower extremity. 2. Abnormal FARRUKH right lower extremity. Findings suggestive of moderate atherosclerotic disease. [facility], , 05/21/2024 9:17 AM
--- NOTE | 2024-05-21 10:24 | P.CONS ---
History of Present Illness - Reason for Consult Consult date: 05/21/24 wound care - History of Present Illness This is a 69-year-old patient being seen for a ulceration to the left dorsal foot. Patient underwent a amputation of the left great toe. Patient's past medical history is significant for hypertension, arthritis, and current half a pack a day smoker for greater than 50 years. Patient stated that he had a fungal infection to the left great toenail and it started to fall off. Patient was then found to have significant swelling redness and pain to the site that brought him to the hospital. Patient underwent an amputation of the left great toe. His FARRUKH to the left is 0.3. Patient will be set up for additional vascular studies and possible intervention. At this time the ulceration measures 5 x 6.4 x 4 cm with slough and nonviable tissue present. Bone and tendon exposed. Minimal granulation noted. Sanguinous drainage present. Deep tissue culture obtained awaiting results. Review Of Systems: Constitutional: No fever, no chills, no night sweats. No weight change. No weakness, fatigue or lethargy. No daytime sleepiness. Integumentary:reports wounds, no lesions. No rash or pruritus. No unusual bruising. No change in hair or nails. Physical exam: General Appearance: Alert, cooperative, no distress, appears stated age. Skin: See HPI all other Skin color, texture, tugor normal, no rashes or lesions. Neurologic: Alert oriented x3 Assessment: 1. Nonhealing ulceration left great toe with bone necrosis 2. Atherosclerosis with gangrene and ulceration 3. Nicotine dependence Plan: 1.Apply absorptive silver rope to the amputation - moisten, honey to the dorsal foot ulceration, cover with gauze, rolled gauze and secure with tape. Non- weight bearing to the forefoot of left foot. Use heel for transfering. Patient would like to go to the wound care center on bed asked due to his location. Discussed the importance of following up for additional care. At this time the prognosis is guarded. Thank for the consultation any questions please contact the wound care center DNP note has been reviewed and discussed with Dr. Cornelius and the impression and plan of care has been directed as dictated. Past Medical History Past Medical History: Hypertension History of Any Multi-Drug Resistant Organisms: None Reported Past Surgical History: Cholecystectomy Past Psychological History: No Psychological Hx Reported Smoking Status: Current every day smoker Past Alcohol Use History: Daily Past Drug Use History: None Reported Medications and Allergies Home Medications Medication Instructions Recorded Confirmed Type Acetaminophen Tab [Tylenol Tab] 1,000 mg PO Q6HR PRN 05/19/24 05/19/24 History Aleve Back & Muscle Pain 1 tab PO BID 05/19/24 05/19/24 History Ascorbic Acid [Vitamin C] 500 mg PO W/SUPPER 05/19/24 05/19/24 History Cholecalciferol [Vitamin D3 (25 25 mcg PO W/SUPPER 05/19/24 05/19/24 History Mcg = 1000 Iu)] Elderberry(Unknown Dose) 1 tab PO W/SUPPER 05/19/24 05/19/24 History Magnesium Oxide [Magnesium] 500 mg PO W/SUPPER 05/19/24 05/19/24 History Mv-Min/Folic/K1/Lycopen/Lutein 1 tab PO W/SUPPER 05/19/24 05/19/24 History [Centrum Silver Men Tablet] Zinc Gluconate [Zinc] 50 mg PO W/SUPPER 05/19/24 05/19/24 History amLODIPine [Norvasc] 10 mg PO DAILY 05/19/24 05/19/24 History lisinopriL 40 mg PO HS 05/19/24 05/19/24 History Allergies Allergy/AdvReac Type Severity Reaction Status Date / Time No Known Allergies Allergy Verified 05/19/24 15:46 Physical Exam Vitals: Vital Signs Temp Pulse Resp BP Pulse Ox 05/21/24 06:58 98.5 F 72 16 112/41 96 05/21/24 01:00 98.0 F 87 15 129/61 96 05/20/24 20:44 78 130/65 99 05/20/24 20:14 74 122/68 100 05/20/24 20:00 97.9 F 85 16 145/77 93 L 05/20/24 19:44 75 112/65 98 05/20/24 19:29 95 125/69 100 05/20/24 19:15 97 141/75 97 05/20/24 19:01 91 133/68 95 05/20/24 18:44 98.4 F 83 145/72 92 L 05/20/24 18:18 98.4 F 87 17 137/73 94 L 05/20/24 17:35 83 18 126/78 96 05/20/24 17:20 84 16 129/60 97 05/20/24 17:05 86 16 131/63 96 05/20/24 16:50 97 16 128/63 96 05/20/24 16:45 97.6 F 81 16 105/58 98 05/20/24 15:22 99.3 F 90 16 151/75 98 05/20/24 12:51 97.8 F 88 17 145/77 98 Intake and Output 05/20/24 05/21/24 05/21/24 22:59 06:59 14:59 Intake Total 600 600 Output Total 3 1950 300 Balance 597 -0930 -300 Intake: IV 600 Intake, IV Titration 600 Amount Cefepime 2 gm In Sodium 100 Chloride 0.9% 100 ml @ 200 mls/hr IVPB Q8HR [facility] Rx#:[id number] Vancomycin 1,500 mg In 500 Sodium Chloride 0.9% 500 ml 500 ml @ 167 mls/hr IVPB Q12H [facility] Rx#: [id number] Output: Urine 1950 300 Estimated Blood Loss 3 Other: Weight 78.925 kg Results CBC & Chem 7: 05/20/24 09:39 05/20/24 02:39 Labs: Abnormal Lab Results - Last 24 Hours (Table) 05/20/24 Range/Units 09:39 RBC 3.98 L (4.30-5.90) m/uL Hgb 12.5 L (13.0-17.5) gm/dL Hct 37.1 L (39.0-53.0) % Microbiology - Last 24 Hours (Table) 05/19/24 16:12 Gram Stain - Preliminary Foot - Left Wound Culture - Preliminary Assessment and Plan (1) Non-pressure chronic ulcer of other part of left foot with necrosis of bone Current Visit: Yes Status: Acute Code(s): L97.524 - NON-PRS CHRONIC ULCER OTH PRT LEFT FOOT W NECROSIS OF BONE SNOMED Code(s): 45802128209699268 (2) Atherosclerosis of left lower extremity with ulceration of midfoot Current Visit: Yes Status: Acute Code(s): I70.244 - ATHSCL [place] ART OF LEFT LEG W ULCER OF HEEL AND MIDFOOT SNOMED Code(s): 8049018330 (3) Nicotine dependence Current Visit: Yes Status: Acute Code(s): F17.200 - NICOTINE DEPENDENCE, UNSPECIFIED, UNCOMPLICATED SNOMED Code(s): 99786692
[2024-05-21 11:05] LABS: BUN/Creat Ratio 11.43 Ratio (12.00-20.00); Calcium 9.4 mg/dL (8.7-10.3); Carbon Dioxide 21.6 mmol/L (21.6-31.8); Chloride 100 mmol/L (96-109); Glucose 122 mg/dL (70-110); Potassium 5.2 mmol/L (3.5-5.5); Sodium 134 mmol/L (135-145)
[2024-05-21 11:07] LABS: Basophils # (A) 0.03 X 10*3/uL (0.00-0.10); Basophils % (A) 0.2 %; Eosinophils # (A) 0 X 10*3/uL (0.04-0.35); Eosinophils % (A) 0 %; HCT 36.7 % (39.6-50.0); HGB 12.5 g/dL (13.0-17.0); Lymphocytes # (A) 1.28 X 10*3/uL (0.90-5.00); Lymphocytes % (A) 9.9 %; MCH 31.7 pg (27.0-32.0); MCHC 34.1 g/dL (32.0-37.0); MCV 93.1 FL (80.0-97.0); Mean Platelet Volume 8.6 FL (9.5-12.2); Monocytes # (A) 1.38 X 10*3/uL (0.20-1.00); Monocytes % (A) 10.7 %; NRBC Per 100 WBC 0 X 10*3/uL (0.00-0.01); Neutrophils # (A) 10.15 X 10*3/uL (1.80-7.70); Neutrophils % (A) 78.8 %; Platelet Count 448 X 10*3/uL (140-440); RBC 3.94 X 10*6/uL (4.40-5.60); RDW 12.9 % (11.5-14.5); WBC 12.89 X 10*3/uL (4.50-10.00)
--- NOTE | 2024-05-21 11:42 | CT ---
EXAMINATION TYPE: CT angio abd aorta w/Runoff CT DLP: 2079.2 mGycm, Automated exposure control for dose reduction was used. DATE OF EXAM: 05/21/2024 11:28 AM COMPARISON: Arterial ultrasound lower extremity 05/21/2024 CLINICAL INDICATION:Male, 69 years old with history of left non healing wound, nonpalpable DP/PT puls e; left foot ulcer TECHNIQUE: Multiple thin slice sub-millimeter images were obtained through the abdomen, pelvis, and l ower extremities before and after administration of contrast. Patient was given Isovue 370, 100 cc i ntravenously. 3-D reconstructed images and maximum intensity projection images were obtained of the abdomen, pelvis, and lower extremities. FINDINGS: Motion degraded examination. CTA Abdomen and pelvis: The abdominal aorta does not demonstrate aneurysmal dilatation. There are at herosclerotic plaquing is identified within the abdominal aorta. The origins of the superior mesente poonam artery, renal arteries, inferior mesenteric artery, and celiac axis are patent. Moderate stenosis at the origin of the SMA secondary to calcified plaque. There are 2 right renal arteries. The iliac vessels are normal in morphology. Atherosclerotic plaquing with some mural thrombus formation is anurag ntified in the common iliac arteries with mild narrowing. Multi short segment mild to moderate short segment stenosis of the bilateral internal iliac arteries. Mild stenosis of the origin of both exter nal iliac arteries. CTA Lower extremities: Right: The common femoral and superficial femoral arteries are patent. Short segment moderate stenosi s of the distal superficial femoral artery secondary to calcified plaque. The popliteal artery is pat ent. Anterior and posterior tibial arteries as well as the peroneal artery are patent. Diminutive naila earance of the peroneal artery. Anterior and posterior tibial arteries cross the ankle. Left: The common femoral artery is patent. Short segment 1.5 cm length high-grade stenosis of the pro ximal left superficial femoral artery secondary to calcified and noncalcified plaque (series 501, radha ge 202). Remaining portions are demonstrate contrast enhancement. There is moderate length occlusion of the mid left superficial femoral artery with distal reconstitution of approximately 8 cm with calc ified and noncalcified plaque. The popliteal artery is patent. Short segment high-grade stenosis of a pproximately 5 mm of the popliteal artery (series 501, image 386). Anterior and posterior tibial king kyrie as well as the peroneal artery are diminutive but patent. Anterior and posterior tibial arteries cross the ankle. VISCERA: The liver, spleen, adrenal glands, kidneys, pancreas, and gallbladder are not optimally enha nced due the arterial phase utilized. LIVER: Unremarkable GALLBLADDER AND BILE DUCTS: Gallbladder surgically absent. No extra hepatic biliary dilatation dilata tion. Mild intrahepatic biliary duct dilatation likely related to cholecystectomy. PANCREAS: Unremarkable. SPLEEN: Unremarkable. ADRENAL GLANDS: Unremarkable. KIDNEYS AND URETERS: No evidence of hydronephrosis or renal calculus. Bilateral renal vascular calcif ications. The kidneys enhance symmetrically. PELVIS BLADDER: Unremarkable REPRODUCTIVE: Unremarkable. ABDOMEN & PELVIS STOMACH AND BOWEL: Stomach and duodenum are unremarkable. No focal bowel wall thickening or surroundi ng inflammatory changes. Appendicoliths identified within the appendix without surrounding inflammato ry changes or wall thickening. No evidence of bowel obstruction. PERITONEUM: No evidence of pneumoperitoneum or free fluid. Dropped surgical clip within the rectovesi cular space. VASCULATURE: No evidence of aortic aneurysm. MUSCULOSKELETAL: No acute osseous abnormalities. Almost grade 2 anterior spondylolisthesis of L4 and L5 without evidence of pars defect. Prominent Schmorl's node involving the superior endplate of the L 2 vertebral body. Multilevel degenerative disc disease. Bilateral lower extremity edema below the kne e with left greater than right. Bunion deformity of the right first metatarsal. Postamputation change s of the left first digit at the metatarsal head surrounding soft tissue defect. Motion degradation l imits evaluation of the fine osseous detail of the feet. LYMPH NODES: No gross evidence for lymphadenopathy. SOFT TISSUE/ABDOMINAL WALL: Fat filled left inguinal hernia. IMPRESSION: 1. Moderate atherosclerotic disease involving abdominal aorta and lower extremity vasculature. Moder ate length occlusion of the left mid superficial femoral artery with short segment occlusion identifi ed in the proximal portion with distal reconstitution as described above. Short segment moderate sten osis of the distal right superficial femoral artery. Additional short segment high-grade stenosis of the left popliteal artery. 2. At least two vessels are seen crossing the ankle joint bilaterally. 3. Bilateral distal lower extremity soft tissue edema with postoperative dictation changes of the le ft first digit of the first metatarsal head with adjacent soft tissue defects. Evaluation is limited due to motion. [facility], , 05/21/2024 11:40 AM
--- NOTE | 2024-05-21 12:55 | P.PN ---
Subjective Progress Note Date: 05/21/24 Principal diagnosis: Left great toe ischemia, gangrene Patient is seen and examined today as a follow-up. He is postop day #1 for left great toe amputation. States he is having quite a bit of pain at the surgical site. Underwent arterial ultrasound of lower extremities, ABIs reported as right 0.77, left 0.33. Apparently patient had some bleeding from surgical site it was reinforced with dressing. Deep tissue cultures currently pending. Patient's been afebrile. Objective - Vital Signs Vital signs: Vital Signs Temp 98.5 F 05/21/24 06:58 Pulse 72 05/21/24 06:58 Resp 16 05/21/24 06:58 BP 112/41 05/21/24 06:58 Pulse Ox 96 05/21/24 06:58 FiO2 Intake & Output 05/20/24 05/21/24 05/21/24 18:59 06:59 18:59 Intake Total 600 600 Output Total 3 1950 300 Balance 597 -1350 -300 Weight 78.925 kg Intake: IV 600 Intake, IV Titration 600 Amount Cefepime 2 gm In Sodium 100 Chloride 0.9% 100 ml @ 200 mls/hr IVPB Q8HR [facility] Rx#:[id number] Vancomycin 1,500 mg In 500 Sodium Chloride 0.9% 500 ml 500 ml @ 167 mls/hr IVPB Q12H [facility] Rx#: [id number] Output: Urine 1950 300 Estimated Blood Loss 3 Other: # Voids 1 - Exam General appearance: The patient is alert, oriented, appears in no acute distress. HET: Head is normocephalic and atraumatic. Pupils are equal and reactive. Neck: Supple. Heart: Regular. Lungs: Equal expansion, normal respiratory effort. Abdomen: Soft, nontender, nondistended. Extremities: Palpable bilateral femoral pulses. Left lower extremity edema, cellulitis. Left great toe amputation site with small amount of bleeding. Neurological: No focal deficits. Strength and sensation are grossly intact. - Labs CBC & Chem 7: 05/21/24 06:39 05/21/24 06:39 Labs: Abnormal Lab Results - Last 24 Hours (Table) 05/20/24 05/20/24 05/20/24 Range/Units 02:39 02:39 09:39 RBC 3.85 L 3.98 L (4.40-5.60) X 10*6/uL Hgb 12.3 L 12.5 L (13.0-17.0) g/dL Hct 35.2 L 37.1 L (39.6-50.0) % MPV 8.5 L (9.5-12.2) FL Monocytes # 1.18 H (0.20-1.00) X 10*3/uL Sodium 132 L (135-145) mmol/L Carbon Dioxide 21.0 L (21.6-31.8) mmol/L Microbiology - Last 24 Hours (Table) 05/19/24 16:12 Gram Stain - Preliminary Foot - Left Wound Culture - Preliminary Assessment and Plan Assessment: 1. Left great toe ischemia with gangrene status post amputation 2. Left lower extremity cellulitis 3. FARRUKH 0.77 right, left 0.33 4. Mid left SFA occlusion with distal reconstitution 5. Chronic tobacco use 6. Hypertension Plan: 1. ABIs ordered and reviewed 2. CTA abdomen pelvis with runoff 3. Consult to wound center for continued local wound care 4. Offload pressure on forefoot, heel walk only. Will order postop shoe. This was discussed with the patient. 5. Recommend smoking cessation, patient currently has nicotine patches ordered 6. Continue with recommendations from infectious disease 7. Further recommendations forthcoming from vascular surgeon based on clinical course Thank you for this consultation, we will continue to follow. The impression and plan of care has been dictated as directed. I performed a history and examination of this patient, discussed the same with the dictator. I agree with the dictator's note ,documented as a scribe. Any additional findings or plans will be noted.
[2024-05-21] MEDS: SODIUM CHLORIDE 0.9% 1,000 ML IV SCH (13:01)
--- NOTE | 2024-05-21 13:44 | P.PN ---
Subjective Progress Note Date: 05/21/24 Patient is a 69-year-old male with past medical history of hypertension presented to the emergency department due to left foot infection. He states that he has had ongoing redness and infection in his left great toe for 2.5 weeks. He states that it started as a small sore on the top of his foot that progressed to between his first and second toes. Him and his have been treating it with topical antifungal with no relief. He endorses worsening redness and swelling of the left foot extending up to the left mid-leg and dull, aching pain without radiation. He ambulates well normally with a cane and has full sensation of his feet. He denies fever, chills, nausea, vomiting, chest pain, dyspnea. No images were obtained. WBCs 11.6, hemoglobin 13.2, platelets 472, ESR 43, sodium 127, potassium 5.1, CO2 17, creatinine 0.67, CRP 3.4. Afebrile, normotensive, saturating well on room air. 05/21. Patient seen at bedside. Patient underwent left first toe amputation yesterday. Preliminary wound culture: Rare polymorphonuclear leukocytes, many gram-negative bacilli, moderate gram-positive cocci, few yeast. He states he has a lot of pain in the left foot. Arterial ultrasound bilateral lower extremity: Abnormal FARRUKH left lower extremityfindings suggestive of severe to critical atherosclerotic changes of left lower extremity, abnormal FARRUKH right lower extremityfindings suggestive moderate atherosclerotic disease. Review of systems: Pertinent positives and negatives as discussed in HPI, a complete review of systems was performed and all other systems are negative. Physical examination: Vital signs are reviewed. General: No acute distress. AOx4. HEENT: Head exam is unremarkable. EOMI bilaterally. ACs patent. Nares patent. Lungs: Bilateral breath sounds present; no rhonchi, wheezes, or rales. Heart: Rate and rhythm are regular. S1-S2 present. No murmur/rub/gallops. Abdomen: Soft, nontender, nondistended. Bowel sounds present. Extremities: No edema present on the right lower extremity. Symmetric movement. Left foot wrapped-status post left first toe amputation, edema of the left lower extremity extending towards the knee with erythema. Psych: Normal affect and mood. Cooperative. Assessment/Plan: Cellulitis Nonhealing left first toe wound, status post amputation Continue vancomycin and cefepime Monitor CBC/BMP Vascular surgery following Infectious disease following Hypertension Continue home medications Peripheral arterial disease Abnormal FARRUKH bilaterally suggesting moderate atherosclerotic disease of the right lower extremity and severe to critical disease of the left lower extremity DVT prophylaxis: Heparin Chronic conditions: Hypertension The patient is admitted with an anticipated more than than 2 midnight stay for evaluation of cellulitis CODE STATUS: Full code Discussed with: Patient Anticipated discharge place: Home Objective - Vital Signs Vital signs: Vital Signs Temp 98.0 F 05/21/24 01:00 Pulse 87 05/21/24 01:00 Resp 15 05/21/24 01:00 BP 129/61 05/21/24 01:00 Pulse Ox 96 05/21/24 01:00 FiO2 Intake & Output 05/20/24 05/21/24 05/21/24 18:59 06:59 18:59 Intake Total 600 600 Output Total 3 1950 Balance 597 -1350 Weight 78.925 kg Intake: IV 600 Intake, IV Titration 600 Amount Cefepime 2 gm In Sodium 100 Chloride 0.9% 100 ml @ 200 mls/hr IVPB Q8HR [facility] Rx#:[id number] Vancomycin 1,500 mg In 500 Sodium Chloride 0.9% 500 ml 500 ml @ 167 mls/hr IVPB Q12H [facility] Rx#: [id number] Output: Urine 1950 Estimated Blood Loss 3 Other: # Voids 1 - Labs CBC & Chem 7: 05/21/24 06:39 05/21/24 06:39 Labs: Abnormal Lab Results - Last 24 Hours (Table) 05/20/24 05/20/24 05/20/24 Range/Units 02:39 02:39 09:39 RBC 3.85 L 3.98 L (4.40-5.60) X 10*6/uL Hgb 12.3 L 12.5 L (13.0-17.0) g/dL Hct 35.2 L 37.1 L (39.6-50.0) % MPV 8.5 L (9.5-12.2) FL Monocytes # 1.18 H (0.20-1.00) X 10*3/uL Sodium 132 L (135-145) mmol/L Carbon Dioxide 21.0 L (21.6-31.8) mmol/L Microbiology - Last 24 Hours (Table) 05/19/24 16:12 Gram Stain - Preliminary Foot - Left Wound Culture - Preliminary
--- NOTE | 2024-05-21 15:33 | P.PN ---
Subjective Progress Note Date: 05/21/24 Principal diagnosis: Reason for follow-up is left big toe and foot cellulitis Patient is a 69-year-old male with a past medical history significant for hypertension current everyday smoker and this patient has been dealing with a left big toe nail fungal infection that subsequently fell off however the patient has been dealing with the left big toe discoloration with some swelling and redness, admitted to hospital with cellulitis left big toe. On today's evaluation that is Patient is status post left big toe amputation concerning for ischemia cultures obtained on 05/20/2024. On today's evaluation that is 05/21/2024, Patient is afebrile patient is currently on room air and denies having any shortness of breath, the patient denies any chest pain or cough, the patient denies any nausea vomiting did not have any abdominal pain and no diarrhea, P denies any worsening pain to the left big toe amputation site. Patient white count is 12.89 creatinine 0.7 cultures are currently pending Objective - Vital Signs Vital signs: Vital Signs Temp 98.5 F 05/21/24 06:58 Pulse 72 05/21/24 06:58 Resp 16 05/21/24 06:58 BP 112/41 05/21/24 06:58 Pulse Ox 96 05/21/24 06:58 FiO2 Intake & Output 05/20/24 05/21/24 05/21/24 18:59 06:59 18:59 Intake Total 600 600 Output Total 3 1950 300 Balance 597 -1350 -300 Weight 78.925 kg Intake: IV 600 Intake, IV Titration 600 Amount Cefepime 2 gm In Sodium 100 Chloride 0.9% 100 ml @ 200 mls/hr IVPB Q8HR [facility] Rx#:[id number] Vancomycin 1,500 mg In 500 Sodium Chloride 0.9% 500 ml 500 ml @ 167 mls/hr IVPB Q12H [facility] Rx#: [id number] Output: Urine 1950 300 Estimated Blood Loss 3 Other: # Voids 1 - Exam GENERAL DESCRIPTION: An elderly male lying in bed in no distress RESPIRATORY SYSTEM: Unlabored breathing , decreased breath sounds at bases HEART: S1 S2 regular rate and rhythm , ABDOMEN: Soft , no tenderness EXTREMITIES: Left big toe dorsum aspect did have a discoloration from erythema - Labs CBC & Chem 7: 05/21/24 06:39 05/21/24 06:39 Labs: Abnormal Lab Results - Last 24 Hours (Table) 05/21/24 05/21/24 Range/Units 06:39 06:39 WBC 12.89 H (4.50-10.00) X 10*3/uL RBC 3.94 L (4.40-5.60) X 10*6/uL Hgb 12.5 L (13.0-17.0) g/dL Hct 36.7 L (39.6-50.0) % Plt Count 448 H (140-440) X 10*3/uL MPV 8.6 L (9.5-12.2) FL Immature Gran # 0.05 H (0.00-0.04) X 10*3/uL Neutrophils # 10.15 H (1.80-7.70) X 10*3/uL Monocytes # 1.38 H (0.20-1.00) X 10*3/uL Eosinophils # 0 L (0.04-0.35) X 10*3/uL Sodium 134 L (135-145) mmol/L Anion Gap 12.40 H (4.00-12.00) mmol/L BUN 8.0 L (9.0-27.0) mg/dL BUN/Creatinine Ratio 11.43 L (12.00-20.00) Ratio Glucose 122 H (70-110) mg/dL Microbiology - Last 24 Hours (Table) 05/19/24 16:12 Gram Stain - Preliminary Foot - Left Wound Culture - Preliminary Assessment and Plan (1) Cellulitis of left foot Current Visit: Yes Status: Acute Code(s): L03.116 - CELLULITIS OF LEFT LOWER LIMB SNOMED Code(s): 64166669547386915 Plan: 1patient presenting to the hospital with the left foot big toe dorsal ulceration and concern for cellulitis that has been going on for the last 2 w eeks we will need to cover for the gram-positive skin sha and less likely gram-negative infection. 2patient is status post left big toe amputation concerning mostly for ischemia than infection as per discussion with the vascular surgeon however culture has been obtained 3patient to continue with vancomycin pharmacy to dose target trough of 15 while watching kidney function and and cefepime while waiting for the culture to finalize 4-patient to continue with nystatin powder inbetween the toe webs Family the bedside question concern answered Dictation was produced using [employer] dictation software. please excuse any grammatical, word or spelling errors. Time with Patient: Less than 30
[2024-05-21] MEDS: VANCOMYCIN TROUGH DUE 1 EACH MISC MISCELLANE ONE (16:04)
[2024-05-21] MEDS: lisinopriL 20 MG TAB PO SCH (20:19)
--- NOTE | 2024-05-22 09:23 | P.PN ---
Subjective Progress Note Date: 05/22/24 Patient is a 69-year-old male with past medical history of hypertension presented to the emergency department due to left foot infection. He states that he has had ongoing redness and infection in his left great toe for 2.5 weeks. He states that it started as a small sore on the top of his foot that progressed to between his first and second toes. Him and his have been treating it with topical antifungal with no relief. He endorses worsening redness and swelling of the left foot extending up to the left mid-leg and dull, aching pain without radiation. He ambulates well normally with a cane and has full sensation of his feet. He denies fever, chills, nausea, vomiting, chest pain, dyspnea. No images were obtained. WBCs 11.6, hemoglobin 13.2, platelets 472, ESR 43, sodium 127, potassium 5.1, CO2 17, creatinine 0.67, CRP 3.4. Afebrile, normotensive, saturating well on room air. 05/21. Patient seen at bedside. Patient underwent left first toe amputation yesterday. Preliminary wound culture: Rare polymorphonuclear leukocytes, many gram-negative bacilli, moderate gram-positive cocci, few yeast. He states he has a lot of pain in the left foot. Arterial ultrasound bilateral lower extremity: Abnormal FARRUKH left lower extremityfindings suggestive of severe to critical atherosclerotic changes of left lower extremity, abnormal FARRUKH right lower extremityfindings suggestive moderate atherosclerotic disease. 05/22. Patient seen and examined today. Labs pending at the time of dictation. CT angiogram: Moderate atherosclerotic disease involving abdominal aorta and lower extremity vasculature, moderately dilutions in the left mid superficial femoral artery with short segment occlusion identified in the proximal portion with distal reconstitution as described above, short segment moderate stenosis of the distal right superficial femoral artery, additional short segment high- grade stenosis of the popliteal artery, at least 2 vessels are seen crossing ankle joint bilaterally, bilateral distal lower extremity soft tissue edema with postoperative dictation changes of the left first digit of the first metatarsal head with adjacent soft tissue defects. Patient states that he has pain that improves with his foot hanging off the end of the bed. Review of systems: Pertinent positives and negatives as discussed in HPI, a complete review of systems was performed and all other systems are negative. Physical examination: Vital signs are reviewed. General: No acute distress. AOx4. HEENT: Head exam is unremarkable. EOMI bilaterally. ACs patent. Nares patent. Lungs: Bilateral breath sounds present; no rhonchi, wheezes, or rales. Heart: Rate and rhythm are regular. S1-S2 present. No murmur/rub/gallops. Abdomen: Soft, nontender, nondistended. Bowel sounds present. Extremities: No edema present on the right lower extremity. Symmetric movement. Left foot wrapped-status post left first toe amputation, edema of the left lower extremity extending towards the knee with erythema. Psych: Normal affect and mood. Cooperative. Assessment/Plan: Cellulitis Nonhealing left first toe wound, status post amputation Continue vancomycin and cefepime Monitor CBC/BMP Vascular surgery following Infectious disease following Hypertension Continue home medications Peripheral arterial disease Abnormal FARRUKH bilaterally suggesting moderate atherosclerotic disease of the right lower extremity and severe to critical disease of the left lower extremity DVT prophylaxis: Heparin Chronic conditions: Hypertension Dr. Chloe MD I have performed a history and physical examination and medical decision making of this patient, discussed the same with the the resident, and agree with the assessment and plan as written. I performed brief physical exam. Objective - Vital Signs Vital signs: Vital Signs Temp 97.5 F L 05/22/24 02:00 Pulse 68 05/22/24 02:00 Resp 16 05/21/24 13:12 BP 134/73 05/22/24 02:00 Pulse Ox 95 05/22/24 02:00 FiO2 Intake & Output 05/21/24 05/21/24 05/22/24 06:59 18:59 06:59 Intake Total 600 Output Total 5109 502 5989 Balance -1350 -300 -2350 Intake: Intake, IV Titration 600 Amount Cefepime 2 gm In Sodium 100 Chloride 0.9% 100 ml @ 200 mls/hr IVPB Q8HR [facility] Rx#:[id number] Vancomycin 1,500 mg In 500 Sodium Chloride 0.9% 500 ml 500 ml @ 167 mls/hr IVPB Q12H [facility] Rx#: [id number] Output: Urine [id number] Other: Voiding Method Urinal # Voids 1 - Labs CBC & Chem 7: 05/23/24 05:31 05/23/24 05:31 Labs: Abnormal Lab Results - Last 24 Hours (Table) 05/21/24 05/21/24 Range/Units 06:39 06:39 WBC 12.89 H (4.50-10.00) X 10*3/uL RBC 3.94 L (4.40-5.60) X 10*6/uL Hgb 12.5 L (13.0-17.0) g/dL Hct 36.7 L (39.6-50.0) % Plt Count 448 H (140-440) X 10*3/uL MPV 8.6 L (9.5-12.2) FL Immature Gran # 0.05 H (0.00-0.04) X 10*3/uL Neutrophils # 10.15 H (1.80-7.70) X 10*3/uL Monocytes # 1.38 H (0.20-1.00) X 10*3/uL Eosinophils # 0 L (0.04-0.35) X 10*3/uL Sodium 134 L (135-145) mmol/L Anion Gap 12.40 H (4.00-12.00) mmol/L BUN 8.0 L (9.0-27.0) mg/dL BUN/Creatinine Ratio 11.43 L (12.00-20.00) Ratio Glucose 122 H (70-110) mg/dL Microbiology - Last 24 Hours (Table) 05/20/24 16:30 Gram Stain - Preliminary Foot - Left 05/19/24 16:12 Anaerobic Culture - Preliminary Foot - Left 05/19/24 16:12 Gram Stain - Preliminary Foot - Left Wound Culture - Preliminary Presumptive Staph aureus Alcaligen. faecalis Enterococ casseliflavus(grp d)
[2024-05-22 09:48] LABS: Basophils # (A) 0.07 X 10*3/uL (0.00-0.10); Basophils % (A) 0.8 %; Eosinophils % (A) 1.2 %; HCT 33.4 % (39.6-50.0); HGB 11.4 g/dL (13.0-17.0); Lymphocytes # (A) 1.96 X 10*3/uL (0.90-5.00); Lymphocytes % (A) 23.7 %; MCH 32.3 pg (27.0-32.0); MCHC 34.1 g/dL (32.0-37.0); MCV 94.6 FL (80.0-97.0); Mean Platelet Volume 8.8 FL (9.5-12.2); Monocytes # (A) 1.28 X 10*3/uL (0.20-1.00); Monocytes % (A) 15.5 %; NRBC Per 100 WBC 0 X 10*3/uL (0.00-0.01); Neutrophils # (A) 4.84 X 10*3/uL (1.80-7.70); Neutrophils % (A) 58.6 %; Platelet Count 420 X 10*3/uL (140-440); RBC 3.53 X 10*6/uL (4.40-5.60); WBC 8.27 X 10*3/uL (4.50-10.00)
[2024-05-22 11:18] LABS: Blood Urea Nitrogen 9.8 mg/dL (9.0-27.0); Calcium 8.8 mg/dL (8.7-10.3); Carbon Dioxide 21.6 mmol/L (21.6-31.8); Chloride 102 mmol/L (96-109); Glucose 94 mg/dL (70-110); Potassium 4.4 mmol/L (3.5-5.5); Sodium 134 mmol/L (135-145)
[2024-05-22] MEDS: LIDOCAINE 1% INJ 10MG/ML (20 ML MDV) SQ ONE (12:06)
[2024-05-22] MEDS: HYDROmorphone 1 MG/ML 1 ML SYRINGE IVP ONE (12:06)
[2024-05-22] MEDS: MIDAZOLAM 2 MG/2 ML VIAL IVP ONE ×3 (12:06→12:19)
[2024-05-22] MEDS: fentaNYL (PF) 50 MCG/ML 2 ML AMP IVP ONE ×5 (12:12→12:52)
[2024-05-22] MEDS: HEPARIN SODIUM 1,000 UN/ML (10ML VL) IVP ONE (12:24)
[2024-05-22] MEDS: HEPARIN SODIUM,PORCINE 10,000 UNIT in SODIUM CHLORIDE 0.9% 1,000 ML IRRIGATION ONE (13:07)
[2024-05-22] MEDS: SODIUM CHLORIDE 0.9% 1,000 ML IV ONE (13:07)
--- NOTE | 2024-05-22 13:37 | P.OP ---
Date of Procedure: 05/22/24 Preoperative Diagnosis: Critical limb ischemia, gangrene left great toe Left superficial femoral artery occlusion and popliteal artery stenosis Postoperative Diagnosis: Same Procedure(s) Performed: Ultrasound-guided right common femoral artery access Aortogram with selective left lower extremity angiogram third order Percutaneous atherectomy of the left superficial femoral artery with HawkOne 6M device Percutaneous transluminal balloon angioplasty of the left superficial femoral artery and popliteal artery Percutaneous closure of the right common femoral access with Vascade Conscious sedation x 60mins Anesthesia: local Surgeon: Iain Vu Estimated Blood Loss (ml): 20 Pathology: none sent Condition: stable Disposition: floor Indications for Procedure: 69-year-old gentleman with history of gangrene left great toe with severe peripheral arterial disease who underwent CTA of the abdomen pelvis with runoff which demonstrated left-sided superficial femoral artery occlusion and popliteal artery stenosis presents to the [facility] for angiogram and revascularization. Operative Findings: Left SFA occlusion 100 mm segment with reconstitution above the popliteal. Left popliteal artery with 70% stenosis in 2 segments Two-vessel runoff to the ankle anterior tibial and peroneal with reconstitution of the posterior tibial artery at the ankle Description of Procedure: After written and informed consent was obtained the patient all risks, benefits and complications were described patient is brought to the [facility] and laid supine position. The area of the right groin was prepped and draped in usual sterile fashion. Timeout was performed in normal fashion. Utilizing ultrasound the right femoral artery was accessed and a 6 F sheath was placed. 035 Glidewire was then placed into the aorta followed by an RBI catheter and the left iliac was accessed in an up and over fashion. Selective angiogram was then obtained of the left lower extremity demonstrating chronic total occlusion of the superficial femoral artery just after the takeoff with reconstitution at the above-knee popliteal with stenosis greater than 70% at the popliteal artery. Patient was given heparin and followed with ACTs. An 035 Glidewire advantage was then placed in an up and over fashion and the 6 F short sheath was removed and replaced with an up and over 6 F x 55cm sheath. Selective angiogram was again obtained demonstrating occlusion/stenosis of the left SFA and popliteal artery. Utilizing 035 Glidewire and quick cross catheter the lesion was crossed and selective angiogram distally was obtained demonstrating good intraluminal access. Once across a 6 mm spider filter was placed and utilizing a 6M Hawk one atherectomy device directional atherectomy was performed with multiple passes. Once completed angiogram was obtained demonstrating improvement of the stenotic area. Balloon angioplasty was then performed with a 5 x 250 mm. Balloon angioplasty was then performed of the popliteal artery behind the knee with a 3 .5 x 120 mm chocolate balloon. Final angiogram demonstrated brisk flow through the superficial femoral artery without any evidence of dissection with two- vessel runoff to the ankle with reconstitution of the posterior tibial artery. Attempt at getting a wire across the posterior tibial artery was performed without success due to no takeoff noted at the trifurcation. All guidewires and catheters were then removed the sheath was removed and replaced with a short 6 F sheath and utilizing a Vascade closure device the access was closed. Pressure was placed for hemostasis. The patient tolerated the procedure well and had multiphasic AT and posterior tibial signals and was sent to the 6 floor. He will continue aspirin, Plavix and statin. Continue local wound care.
--- NOTE | 2024-05-22 14:04 | IR ---
EXAMINATION TYPE: IR [employer] femoral popliteal DATE OF EXAM: 05/22/2024 1:28 PM COMPARISON: Pre Operative Images if available both CT/MRI or plain film CLINICAL INDICATION: Male, 69 years old with history of left foot pain, 18.5min fluoro, 16.4Gycm2; TECHNIQUE: IR [employer] femoral popliteal, multiple fluoroscopic images provided for procedure. Total fluoroscopy time: 18.5 minutes Total submitted images to PACS: [id number] DAP: 6.68 Gycm2 . IMPRESSION: 1. No evidence for intraoperative complication. 2. Please see the operative/procedural note for further details. [facility], , 05/22/2024 2:02 PM
[2024-05-22] MEDS: AMPICILLIN-SULBACTAM 3 GM in SODIUM CHLORIDE 0.9% 100 ML IVPB SCH (14:49)
[2024-05-22] MEDS: ASPIRIN 81 MG PO SCH (15:37)
[2024-05-22] MEDS: LORazepam 2 MG/ML INJ IV PRN (17:03)
[2024-05-23] MEDS: CLOPIDOGREL 75 MG TAB PO SCH (08:54)
[2024-05-23 09:10] LABS: HCT 32.7 % (39.6-50.0); HGB 11.4 g/dL (13.0-17.0); MCH 32.1 pg (27.0-32.0); MCHC 34.9 g/dL (32.0-37.0); MCV 92.1 FL (80.0-97.0); Mean Platelet Volume 8.7 FL (9.5-12.2); NRBC Per 100 WBC 0 X 10*3/uL (0.00-0.01); Platelet Count 408 X 10*3/uL (140-440); RBC 3.55 X 10*6/uL (4.40-5.60); RDW 12.7 % (11.5-14.5); WBC 9.17 X 10*3/uL (4.50-10.00)
[2024-05-23 09:30] LABS: BUN/Creat Ratio 11.71 Ratio (12.00-20.00); Blood Urea Nitrogen 8.2 mg/dL (9.0-27.0); Calcium 8.9 mg/dL (8.7-10.3); Carbon Dioxide 21.9 mmol/L (21.6-31.8); Chloride 100 mmol/L (96-109); Glucose 102 mg/dL (70-110); Potassium 4.1 mmol/L (3.5-5.5); Sodium 134 mmol/L (135-145)
[2024-05-23 09:50] LABS: Basophils # (A) 0.06 X 10*3/uL (0.00-0.10); Basophils % (A) 0.7 %; Eosinophils # (A) 0.05 X 10*3/uL (0.04-0.35); Eosinophils % (A) 0.5 %; Lymphocytes # (A) 1.36 X 10*3/uL (0.90-5.00); Lymphocytes % (A) 14.8 %; Monocytes # (A) 1.55 X 10*3/uL (0.20-1.00); Monocytes % (A) 16.9 %; Neutrophils # (A) 6.12 X 10*3/uL (1.80-7.70); Neutrophils % (A) 66.8 %
[2024-05-23] MEDS: LORazepam 0.5 MG TAB PO PRN (11:44)
--- NOTE | 2024-05-23 14:34 | P.PN ---
Subjective Progress Note Date: 05/22/24 Principal diagnosis: Reason for follow-up is left big toe and foot cellulitis Patient is a 69-year-old male with a past medical history significant for hypertension current everyday smoker and this patient has been dealing with a left big toe nail fungal infection that subsequently fell off however the patient has been dealing with the left big toe discoloration with some swelling and redness, admitted to hospital with cellulitis left big toe. Patient is status post left big toe amputation concerning for ischemia cultures obtained on 05/20/2024 subsequently the patient did have percutaneous transluminal balloon angioplasty of the left superficial femoral artery and popliteal artery on 05/22/2024. On today's evaluation that is 05/22/2024, patient has been afebrile, patient is breathing comfortably and is currently on room air, patient denies having any significant cough no chest pain shortness of breath, patient denies nausea vomiting or diarrhea and no abdominal pain, denies any worsening pain to the left foot. Patient white count is 8.27, creatinine is 9.8 local culture have been finalized with MSSA and Enterococcus faecalis Objective - Vital Signs Vital signs: Vital Signs Temp 97.9 F 05/22/24 07:01 Pulse 65 05/22/24 07:01 Resp 16 05/22/24 07:01 BP 135/74 05/22/24 07:01 Pulse Ox 95 05/22/24 07:01 FiO2 Intake & Output 05/21/24 05/22/24 05/22/24 18:59 06:59 18:59 Intake Total 300 Output Total 300 2350 Balance -300 -2350 300 Intake: IV 300 Output: Urine 300 2350 Other: Voiding Method Urinal # Voids 1 1 - Exam GENERAL DESCRIPTION: An elderly male lying in bed in no distress RESPIRATORY SYSTEM: Unlabored breathing , decreased breath sounds at bases HEART: S1 S2 regular rate and rhythm , ABDOMEN: Soft , no tenderness EXTREMITIES: Left foot is currently dressed - Labs CBC & Chem 7: 05/23/24 05:31 05/23/24 05:31 Labs: Abnormal Lab Results - Last 24 Hours (Table) 05/22/24 05/22/24 Range/Units 02:44 02:44 RBC 3.53 L (4.40-5.60) X 10*6/uL Hgb 11.4 L (13.0-17.0) g/dL Hct 33.4 L (39.6-50.0) % MCH 32.3 H (27.0-32.0) pg MPV 8.8 L (9.5-12.2) FL Monocytes # 1.28 H (0.20-1.00) X 10*3/uL Sodium 134 L (135-145) mmol/L Microbiology - Last 24 Hours (Table) 05/20/24 16:30 Gram Stain - Preliminary Foot - Left Wound Culture - Preliminary Alcaligen. faecalis Enterococ casseliflavus(grp d) 05/19/24 16:12 Anaerobic Culture - Preliminary Foot - Left 05/19/24 16:12 Gram Stain - Preliminary Foot - Left Wound Culture - Preliminary Presumptive Staph aureus Alcaligen. faecalis Enterococ casseliflavus(grp d) Assessment and Plan (1) Cellulitis of left foot Current Visit: Yes Status: Acute Code(s): L03.116 - CELLULITIS OF LEFT LOWER LIMB SNOMED Code(s): 59491416037514364 Plan: 1patient presenting to the hospital with the left foot big toe dorsal ulceration and concern for cellulitis that has been going on for the last 2 weeks we will need to cover for the gram-positive skin sha and less likely gram-negative infection. 2patient is status post left big toe amputation concerning mostly for ischemia than infection as per discussion with the vascular surgeon however culture has been obtained subsequently did have angioplasty to left lower extremity 3patient culture did grew Enterococcus faecalis and MSSA antibiotic has been switched over to her Unasyn cefepime and vancomycin has been discontinued Dictation was produced using [employer] dictation software. please excuse any grammatical, word or spelling errors. Time with Patient: Less than 30
--- NOTE | 2024-05-23 14:34 | P.PN ---
Subjective Progress Note Date: 05/23/24 Principal diagnosis: Reason for follow-up is left big toe and foot cellulitis Patient is a 69-year-old male with a past medical history significant for hypertension current everyday smoker and this patient has been dealing with a left big toe nail fungal infection that subsequently fell off however the patient has been dealing with the left big toe discoloration with some swelling and redness, admitted to hospital with cellulitis left big toe. Patient is status post left big toe amputation concerning for ischemia cultures obtained on 05/20/2024 subsequently the patient did have percutaneous transluminal balloon angioplasty of the left superficial femoral artery and popliteal artery on 05/22/2024. On today's evaluation that is 05/23/2024, Patient is afebrile this morning patient denies having any chest pain shortness of breath or cough, the patient is breathing comfortably on room air, patient denies any abdominal pain no diarrhea no nausea no vomiting, the patient denies any worsening pain to the left foot area. Local culture now growing MSSA Enterococcus and Alcaligenes faecalis Objective - Vital Signs Vital signs: Vital Signs Temp 98.7 F 05/23/24 07:47 Pulse 75 05/23/24 07:47 Resp 16 05/23/24 07:47 BP 136/70 05/23/24 07:47 Pulse Ox 99 05/23/24 07:47 FiO2 Intake & Output 05/22/24 05/23/24 05/23/24 18:59 06:59 18:59 Intake Total 300 Output Total 1350 Balance 300 -1350 Intake: IV 300 Output: Urine 1350 Other: # Voids 1 1 - Exam GENERAL DESCRIPTION: An elderly male lying in bed in no distress RESPIRATORY SYSTEM: Unlabored breathing , decreased breath sounds at bases HEART: S1 S2 regular rate and rhythm , ABDOMEN: Soft , no tenderness EXTREMITIES: Left foot is currently dressed no drainage - Labs CBC & Chem 7: 05/23/24 05:31 05/23/24 05:31 Labs: Abnormal Lab Results - Last 24 Hours (Table) 05/23/24 05/23/24 Range/Units 05:31 05:31 RBC 3.55 L (4.40-5.60) X 10*6/uL Hgb 11.4 L (13.0-17.0) g/dL Hct 32.7 L (39.6-50.0) % MCH 32.1 H (27.0-32.0) pg MPV 8.7 L (9.5-12.2) FL Monocytes # 1.55 H (0.20-1.00) X 10*3/uL Sodium 134 L (135-145) mmol/L Anion Gap 12.10 H (4.00-12.00) mmol/L BUN 8.2 L (9.0-27.0) mg/dL BUN/Creatinine Ratio 11.71 L (12.00-20.00) Ratio Microbiology - Last 24 Hours (Table) 05/20/24 16:30 Gram Stain - Preliminary Foot - Left Wound Culture - Preliminary Alcaligen. faecalis Enterococ casseliflavus(grp d) 05/19/24 16:12 Gram Stain - Preliminary Foot - Left Wound Culture - Preliminary Presumptive Staph aureus Alcaligen. faecalis Enterococ casseliflavus(grp d) Assessment and Plan (1) Cellulitis of left foot Current Visit: Yes Status: Acute Code(s): L03.116 - CELLULITIS OF LEFT LOWER LIMB SNOMED Code(s): 85079631888485378 Plan: 1patient presenting to the hospital with the left foot big toe dorsal ulceration and concern for cellulitis that has been going on for the last 2 weeks we will need to cover for the gram-positive skin sha and less likely gram-negative infection. 2patient is status post left big toe amputation concerning mostly for ischemia than infection as per discussion with the vascular surgeon however culture has been obtained subsequently did have angioplasty to left lower extremity 3patient culture did grew Enterococcus faecalis and MSSA also growing Alcaligenes faecalis hence antibiotic will be switched over to Zosyn reevaluate the wound tomorrow to determine the need for outpatient IV antibiotics Dictation was produced using [employer] dictation software. please excuse any grammatical, word or spelling errors. Time with Patient: Less than 30
[2024-05-23] MEDS: PIPERACILLIN-TAZOBACTAM 3.375 GM in SODIUM CHLORIDE 0.9% 100 ML IVPB SCH (15:31)
--- NOTE | 2024-05-23 21:55 | P.PN ---
Subjective Progress Note Date: 05/23/24 Patient is a 69-year-old male with past medical history of hypertension presented to the emergency department due to left foot infection. He states that he has had ongoing redness and infection in his left great toe for 2.5 weeks. He states that it started as a small sore on the top of his foot that progressed to between his first and second toes. Him and his have been treating it with topical antifungal with no relief. He endorses worsening redness and swelling of the left foot extending up to the left mid-leg and dull, aching pain without radiation. He ambulates well normally with a cane and has full sensation of his feet. He denies fever, chills, nausea, vomiting, chest pain, dyspnea. No images were obtained. WBCs 11.6, hemoglobin 13.2, platelets 472, ESR 43, sodium 127, potassium 5.1, CO2 17, creatinine 0.67, CRP 3.4. Afebrile, normotensive, saturating well on room air. 05/21. Patient seen at bedside. Patient underwent left first toe amputation yesterday. Preliminary wound culture: Rare polymorphonuclear leukocytes, many gram-negative bacilli, moderate gram-positive cocci, few yeast. He states he has a lot of pain in the left foot. Arterial ultrasound bilateral lower extremity: Abnormal FARRUKH left lower extremityfindings suggestive of severe to critical atherosclerotic changes of left lower extremity, abnormal FARRUKH right lower extremityfindings suggestive moderate atherosclerotic disease. 05/22. Patient seen and examined today. Labs pending at the time of dictation. CT angiogram: Moderate atherosclerotic disease involving abdominal aorta and lower extremity vasculature, moderately dilutions in the left mid superficial femoral artery with short segment occlusion identified in the proximal portion with distal reconstitution as described above, short segment moderate stenosis of the distal right superficial femoral artery, additional short segment high- grade stenosis of the popliteal artery, at least 2 vessels are seen crossing ankle joint bilaterally, bilateral distal lower extremity soft tissue edema with postoperative dictation changes of the left first digit of the first metatarsal head with adjacent soft tissue defects. Patient states that he has pain that improves with his foot hanging off the end of the bed. 05/23/2024 Patient is evaluated today on the medical floor. No acute complaints overnight. He is status post arthrectomy of the SFA; balloon angioplasty and stenting. He has been placed on aspirin and plavix. Family has questions regarding discharge planning. We are awaiting physical therapy follow up and coordination for DC. He has post op shoe at bedside. He will need to see wound care in [place] on discharge. Dressing intact to the left foot. Cultures are showing anearococcus vaginalis, alcaligen faecalis, enterococcus casseliflavus group D, and staphylococcus aureus. WBC remains normal at 9.17, sodium 135. Review of systems: Pertinent positives and negatives as discussed in HPI, a complete review of systems was performed and all other systems are negative. Physical examination: Vital signs are reviewed. General: No acute distress. AOx4. HEENT: Head exam is unremarkable. EOMI bilaterally. ACs patent. Nares patent. Lungs: Bilateral breath sounds present; no rhonchi, wheezes, or rales. Heart: Rate and rhythm are regular. S1-S2 present. No murmur/rub/gallops. Abdomen: Soft, nontender, nondistended. Bowel sounds present. Extremities: No edema present on the right lower extremity. Symmetric movement. Left foot wrapped-status post left first toe amputation, edema of the left lower extremity extending towards the knee with erythema. Psych: Normal affect and mood. Cooperative. Assessment/Plan: Cellulitis Nonhealing left first toe wound, status post amputation Antibiotics have been transitioned to IV zosyn following cultures Monitor CBC/BMP Vascular surgery following Infectious disease following Hypertension Continue home medications Peripheral arterial disease Abnormal FARRUKH bilaterally suggesting moderate atherosclerotic disease of the right lower extremity and severe to critical disease of the left lower extremity Patient is status post arthrectomy, balloon angioplasty and stenting of the SFA and has been started on aspirin and plavix therapy Vascular following. -Chronic nicotine use Counseled extensively on smoking cessation and the importance of quitting to pro mote wound healing Patient continues on nicotine patch and will send in a taper on discharge DVT prophylaxis: Heparin GI prophylaxis Full Code The impression and plan of care has been dictated by Bere Chavez, Nurse Practitioner as directed. Dr. Chloe MD I have performed a history and physical examination and medical decision making of this patient, discussed the same with the dictator, and agree with the dictators assessment and plan as written, documented as a scribe. Based on total visit time, I have performed more than 50% of this visit. Objective - Vital Signs Vital signs: Vital Signs Temp 98.5 F 05/23/24 14:00 Pulse 81 05/23/24 14:00 Resp 16 05/23/24 14:00 BP 136/88 05/23/24 14:00 Pulse Ox 99 05/23/24 14:00 FiO2 Intake & Output 05/23/24 05/23/24 05/24/24 06:59 18:59 06:59 Output Total 1350 Balance -1350 Output: Urine 1350 Other: # Voids 1 4 - Labs CBC & Chem 7: 05/23/24 05:31 05/23/24 05:31 Labs: Abnormal Lab Results - Last 24 Hours (Table) 05/23/24 05/23/24 Range/Units 05:31 05:31 RBC 3.55 L (4.40-5.60) X 10*6/uL Hgb 11.4 L (13.0-17.0) g/dL Hct 32.7 L (39.6-50.0) % MCH 32.1 H (27.0-32.0) pg MPV 8.7 L (9.5-12.2) FL Monocytes # 1.55 H (0.20-1.00) X 10*3/uL Sodium 134 L (135-145) mmol/L Anion Gap 12.10 H (4.00-12.00) mmol/L BUN 8.2 L (9.0-27.0) mg/dL BUN/Creatinine Ratio 11.71 L (12.00-20.00) Ratio Microbiology - Last 24 Hours (Table) 05/19/24 16:12 Anaerobic Culture - Final Foot - Left 05/19/24 16:12 Gram Stain - Final Foot - Left Wound Culture - Final Staphylococcus aureus Alcaligen. faecalis Enterococ casseliflavus(grp d) 05/20/24 16:30 Anaerobic Culture - Preliminary Foot - Left Anaerococcus vaginalis 05/20/24 16:30 Gram Stain - Final Foot - Left Wound Culture - Final Alcaligen. faecalis Enterococ casseliflavus(grp d) Assessment and Plan Time with Patient: Less than 30
[2024-05-24 08:59] LABS: Basophils # (A) 0.05 X 10*3/uL (0.00-0.10); Basophils % (A) 0.5 %; Eosinophils # (A) 0.05 X 10*3/uL (0.04-0.35); Eosinophils % (A) 0.5 %; HCT 32.2 % (39.6-50.0); HGB 11.3 g/dL (13.0-17.0); Lymphocytes # (A) 1.21 X 10*3/uL (0.90-5.00); Lymphocytes % (A) 13.2 %; MCH 31.7 pg (27.0-32.0); MCHC 35.1 g/dL (32.0-37.0); MCV 90.4 FL (80.0-97.0); Mean Platelet Volume 8.7 FL (9.5-12.2); Monocytes # (A) 1.71 X 10*3/uL (0.20-1.00); Monocytes % (A) 18.6 %; NRBC Per 100 WBC 0 X 10*3/uL (0.00-0.01); Neutrophils # (A) 6.11 X 10*3/uL (1.80-7.70); Neutrophils % (A) 66.7 %; Platelet Count 395 X 10*3/uL (140-440); RBC 3.56 X 10*6/uL (4.40-5.60); RDW 12.4 % (11.5-14.5); WBC 9.18 X 10*3/uL (4.50-10.00)
[2024-05-24 09:31] LABS: ALT 78 U/L (10-49); AST 42 U/L (14-35); Albumin 3.9 g/dL (3.8-4.9); Albumin/Globulin Ratio 1.56 Ratio (1.60-3.17); Alkaline Phosphatase 313 U/L (41-126); BUN/Creat Ratio 11.86 Ratio (12.00-20.00); Blood Urea Nitrogen 8.3 mg/dL (9.0-27.0); Calcium 9.2 mg/dL (8.7-10.3); Carbon Dioxide 20.1 mmol/L (21.6-31.8); Chloride 100 mmol/L (96-109); Globulin 2.5 g/dL (1.6-3.3); Glucose 105 mg/dL (70-110); Sodium 134 mmol/L (135-145); Total Bilirubin 0.4 mg/dL (0.3-1.2); Total Protein 6.4 g/dL (6.2-8.2)
--- NOTE | 2024-05-24 12:58 | P.PN ---
Subjective Progress Note Date: 05/24/24 Principal diagnosis: Reason for follow-up is left big toe and foot cellulitis Patient is a 69-year-old male with a past medical history significant for hypertension current everyday smoker and this patient has been dealing with a left big toe nail fungal infection that subsequently fell off however the patient has been dealing with the left big toe discoloration with some swelling and redness, admitted to hospital with cellulitis left big toe. Patient is status post left big toe amputation concerning for ischemia cultures obtained on 05/20/2024 subsequently the patient did have percutaneous transluminal balloon angioplasty of the left superficial femoral artery and popliteal artery on 05/22/2024. On today's evaluation that is 05/24/2024,the patient denies any fever or any chills, patient is breathing comfortably on room air, the patient denies chest pain shortness of breath and no significant cough, patient denies abdominal pain, no nausea vomiting or diarrhea. Patient denies pain to the left foot wound. Patient white count 9.18, creatinine 0.7 ESR was 43 local culture with multiple pathogen including MSSA Alcaligenes Enterococcus Objective - Vital Signs Vital signs: Vital Signs Temp 98.5 F 05/24/24 07:54 Pulse 85 05/24/24 07:54 Resp 17 05/24/24 07:54 BP 142/76 05/24/24 07:54 Pulse Ox 98 05/24/24 07:54 FiO2 Intake & Output 05/23/24 05/24/24 05/24/24 18:59 06:59 18:59 Output Total 1450 Balance -1450 Output: Urine 1450 Other: # Voids 4 750 - Exam GENERAL DESCRIPTION: An elderly male lying in bed in no distress RESPIRATORY SYSTEM: Unlabored breathing , decreased breath sounds at bases HEART: S1 S2 regular rate and rhythm , ABDOMEN: Soft , no tenderness EXTREMITIES: Left foot big toe amputation site wound is deep and did have wound to the dorsum aspect of Left foot with slough tissue - Labs CBC & Chem 7: 05/24/24 05:17 05/24/24 05:17 Labs: Abnormal Lab Results - Last 24 Hours (Table) 05/24/24 05/24/24 Range/Units 05:17 05:17 RBC 3.56 L (4.40-5.60) X 10*6/uL Hgb 11.3 L (13.0-17.0) g/dL Hct 32.2 L (39.6-50.0) % MPV 8.7 L (9.5-12.2) FL Immature Gran # 0.05 H (0.00-0.04) X 10*3/uL Monocytes # 1.71 H (0.20-1.00) X 10*3/uL Sodium 134 L (135-145) mmol/L Carbon Dioxide 20.1 L (21.6-31.8) mmol/L Anion Gap 13.90 H (4.00-12.00) mmol/L BUN 8.3 L (9.0-27.0) mg/dL BUN/Creatinine Ratio 11.86 L (12.00-20.00) Ratio AST 42 H (14-35) U/L ALT 78 H (10-49) U/L Alkaline Phosphatase 313 H (41-126) U/L C-Reactive Protein 5.70 H (0.00-0.80) mg/dL Albumin/Globulin Ratio 1.56 L (1.60-3.17) Ratio Microbiology - Last 24 Hours (Table) 05/19/24 16:12 Anaerobic Culture - Final Foot - Left 05/19/24 16:12 Gram Stain - Final Foot - Left Wound Culture - Final Staphylococcus aureus Alcaligen. faecalis Enterococ casseliflavus(grp d) 05/20/24 16:30 Anaerobic Culture - Preliminary Foot - Left Anaerococcus vaginalis 05/20/24 16:30 Gram Stain - Final Foot - Left Wound Culture - Final Alcaligen. faecalis Enterococ casseliflavus(grp d) Assessment and Plan (1) Cellulitis of left foot Current Visit: Yes Status: Acute Code(s): L03.116 - CELLULITIS OF LEFT LOWER LIMB SNOMED Code(s): 18759962828133063 Plan: 1patient presenting to the hospital with the left foot big toe dorsal ulceration and concern for cellulitis that has been going on for the last 2 weeks we will need to cover for the gram-positive skin sha and less likely gram-negative infection. 2patient is status post left big toe amputation concerning mostly for ischemia than infection as per discussion with the vascular surgeon however culture has been obtained subsequently did have angioplasty to left lower extremity 3patient culture did grew Enterococcus faecalis and MSSA also growing Alcaligenes faecalis patient did have extensive wound to the left foot post debridement and amputation keeping in mind his PAD and infection clinical doubt oral antibiotics will be enough to take care of this problem and would likely benefit from PICC line outpatient IV antibiotic therapy is currently on Livan, egg caser to arrange for outpatient IV antibiotics at least 5-week course Dictation was produced using [email or web address] dictation software. please excuse any grammatical, word or spelling errors. Time with Patient: Less than 30
--- NOTE | 2024-05-24 13:14 | P.PN ---
Subjective Progress Note Date: 05/24/24 patient seen and examined. States doing great and his pain in the left leg has resolved. Surgical wound site is doing well per nursing staff. Objective - Vital Signs Vital signs: Vital Signs Temp 98.5 F 05/24/24 07:54 Pulse 85 05/24/24 07:54 Resp 17 05/24/24 07:54 BP 142/76 05/24/24 07:54 Pulse Ox 98 05/24/24 07:54 FiO2 Intake & Output 05/23/24 05/24/24 05/24/24 18:59 06:59 18:59 Output Total 1450 Balance -1450 Output: Urine 1450 Other: # Voids 4 750 - Exam multiphasic dp and pt signals on the left 1+ pitting edema no tenderness to palpation at the lower leg Wound dressings clean and intact - Labs CBC & Chem 7: 05/24/24 05:17 05/24/24 05:17 Labs: Abnormal Lab Results - Last 24 Hours (Table) 05/24/24 05/24/24 Range/Units 05:17 05:17 RBC 3.56 L (4.40-5.60) X 10*6/uL Hgb 11.3 L (13.0-17.0) g/dL Hct 32.2 L (39.6-50.0) % MPV 8.7 L (9.5-12.2) FL Immature Gran # 0.05 H (0.00-0.04) X 10*3/uL Monocytes # 1.71 H (0.20-1.00) X 10*3/uL Sodium 134 L (135-145) mmol/L Carbon Dioxide 20.1 L (21.6-31.8) mmol/L Anion Gap 13.90 H (4.00-12.00) mmol/L BUN 8.3 L (9.0-27.0) mg/dL BUN/Creatinine Ratio 11.86 L (12.00-20.00) Ratio AST 42 H (14-35) U/L ALT 78 H (10-49) U/L Alkaline Phosphatase 313 H (41-126) U/L C-Reactive Protein 5.70 H (0.00-0.80) mg/dL Albumin/Globulin Ratio 1.56 L (1.60-3.17) Ratio Microbiology - Last 24 Hours (Table) 05/19/24 16:12 Anaerobic Culture - Final Foot - Left 05/19/24 16:12 Gram Stain - Final Foot - Left Wound Culture - Final Staphylococcus aureus Alcaligen. faecalis Enterococ casseliflavus(grp d) 05/20/24 16:30 Anaerobic Culture - Preliminary Foot - Left Anaerococcus vaginalis 05/20/24 16:30 Gram Stain - Final Foot - Left Wound Culture - Final Alcaligen. faecalis Enterococ casseliflavus(grp d) Assessment and Plan Assessment: left great toe ischemia with gangrene s/p left great toe amputation POD 2 left SFA revascularization Plan: continue local wound care. Patient states doing wound care in [place] continue aspirin, plavix and statin ok for discharge from vascular standpoint follow up with Dr. Lu in 2 weeks.
--- NOTE | 2024-05-24 13:26 | P.PN ---
Subjective Progress Note Date: 05/24/24 Patient is a 69-year-old male with past medical history of hypertension presented to the emergency department due to left foot infection. He states that he has had ongoing redness and infection in his left great toe for 2.5 weeks. He states that it started as a small sore on the top of his foot that progressed to between his first and second toes. Him and his have been treating it with topical antifungal with no relief. He endorses worsening redness and swelling of the left foot extending up to the left mid-leg and dull, aching pain without radiation. He ambulates well normally with a cane and has full sensation of his feet. He denies fever, chills, nausea, vomiting, chest pain, dyspnea. No images were obtained. WBCs 11.6, hemoglobin 13.2, platelets 472, ESR 43, sodium 127, potassium 5.1, CO2 17, creatinine 0.67, CRP 3.4. Afebrile, normotensive, saturating well on room air. 05/21. Patient seen at bedside. Patient underwent left first toe amputation yesterday. Preliminary wound culture: Rare polymorphonuclear leukocytes, many gram-negative bacilli, moderate gram-positive cocci, few yeast. He states he has a lot of pain in the left foot. Arterial ultrasound bilateral lower extremity: Abnormal FARRUKH left lower extremityfindings suggestive of severe to critical atherosclerotic changes of left lower extremity, abnormal FARRUKH right lower extremityfindings suggestive moderate atherosclerotic disease. 05/22. Patient seen and examined today. Labs pending at the time of dictation. CT angiogram: Moderate atherosclerotic disease involving abdominal aorta and lower extremity vasculature, moderately dilutions in the left mid superficial femoral artery with short segment occlusion identified in the proximal portion with distal reconstitution as described above, short segment moderate stenosis of the distal right superficial femoral artery, additional short segment high- grade stenosis of the popliteal artery, at least 2 vessels are seen crossing ankle joint bilaterally, bilateral distal lower extremity soft tissue edema with postoperative dictation changes of the left first digit of the first metatarsal head with adjacent soft tissue defects. Patient states that he has pain that improves with his foot hanging off the end of the bed. 05/23. Patient is evaluated today on the medical floor. No acute complaints overnight. He is status post arthrectomy of the SFA; balloon angioplasty and stenting. He has been placed on aspirin and plavix. Family has questions regarding discharge planning. We are awaiting physical therapy follow up and coordination for DC. He has post op shoe at bedside. He will need to see wound care in [place] on discharge. Dressing intact to the left foot. Cultures are showing anearococcus vaginalis, alcaligen faecalis, enterococcus casseliflavus group D, and staphylococcus aureus. WBC remains normal at 9.17, sodium 135. 05/24. Patient examined at bedside. He states that he is feeling well. He underwent percutaneous arthrectomy of the left superficial femoral artery, percutaneous transluminal balloon angioplasty of the left superficial femoral artery and popliteal artery, percutaneous closure of the right common femoral access yesterday. WBCs remain normal at 9.18, sodium 134. Review of systems: Pertinent positives and negatives as discussed in HPI, a complete review of systems was performed and all other systems are negative. Physical examination: Vital signs are reviewed. General: No acute distress. AOx4. HEENT: Head exam is unremarkable. EOMI bilaterally. ACs patent. Nares patent. Lungs: Bilateral breath sounds present; no rhonchi, wheezes, or rales. Heart: Rate and rhythm are regular. S1-S2 present. No murmur/rub/gallops. Abdomen: Soft, nontender, nondistended. Bowel sounds present. Extremities: No edema present on the right lower extremity. Symmetric movement. Left foot wrapped-status post left first toe amputation, edema of the left lower extremity extending towards the knee with erythema. Psych: Normal affect and mood. Cooperative. Assessment/Plan: Cellulitis Nonhealing left first toe wound, status post amputation Continue vancomycin and cefepime Monitor CBC/BMP Vascular surgery following Infectious disease following-recommend PICC line for outpatient IV antibiotics Hypertension Continue home medications Peripheral arterial disease Abnormal FARRUKH bilaterally suggesting moderate atherosclerotic disease of the right lower extremity and severe to critical disease of the left lower extremity Underwent percutaneous arthrectomy of the left superficial femoral artery, percutaneous transluminal balloon angioplasty of the left superficial femoral artery and popliteal artery, percutaneous closure of the right common femoral access 05/23 DVT prophylaxis: Heparin Chronic conditions: Hypertension Dr. Chloe MD I have performed a history and physical examination and medical decision making of this patient, discussed the same with the the resident, and agree with the assessment and plan as written. I performed brief physical exam. Objective - Vital Signs Vital signs: Vital Signs Temp 98.5 F 05/24/24 07:54 Pulse 85 05/24/24 07:54 Resp 17 05/24/24 07:54 BP 142/76 05/24/24 07:54 Pulse Ox 98 05/24/24 07:54 FiO2 Intake & Output 05/23/24 05/24/24 05/24/24 18:59 06:59 18:59 Output Total 1450 Balance -1450 Output: Urine 1450 Other: # Voids 4 750 - Labs CBC & Chem 7: 05/24/24 05:17 05/24/24 05:17 Labs: Abnormal Lab Results - Last 24 Hours (Table) 05/23/24 05/23/24 Range/Units 05:31 05:31 RBC 3.55 L (4.40-5.60) X 10*6/uL Hgb 11.4 L (13.0-17.0) g/dL Hct 32.7 L (39.6-50.0) % MCH 32.1 H (27.0-32.0) pg MPV 8.7 L (9.5-12.2) FL Monocytes # 1.55 H (0.20-1.00) X 10*3/uL Sodium 134 L (135-145) mmol/L Anion Gap 12.10 H (4.00-12.00) mmol/L BUN 8.2 L (9.0-27.0) mg/dL BUN/Creatinine Ratio 11.71 L (12.00-20.00) Ratio Microbiology - Last 24 Hours (Table) 05/19/24 16:12 Anaerobic Culture - Final Foot - Left 05/19/24 16:12 Gram Stain - Final Foot - Left Wound Culture - Final Staphylococcus aureus Alcaligen. faecalis Enterococ casseliflavus(grp d) 05/20/24 16:30 Anaerobic Culture - Preliminary Foot - Left Anaerococcus vaginalis 05/20/24 16:30 Gram Stain - Final Foot - Left Wound Culture - Final Alcaligen. faecalis Enterococ casseliflavus(grp d)
[2024-05-25 07:20] VITALS: BP 127/60; PULSE 78; RESP 16; TEMP 98.8
--- NOTE | 2024-05-25 11:14 | P.PN ---
Subjective Progress Note Date: 05/25/24 Principal diagnosis: Left great toe ischemia, gangrene Patient is seen and examined today as a follow-up. He is status post revascularization of the left lower extremity. States pain has significantly improved. He has been up and ambulating. Dressing is in place with drainage noted. Left lower extremity swelling. Patient denies any shortness of breath or chest pain. Deep tissue cultures with Alcaligen faecalis, Enterococ casseliflavus and anaerococcus vaginalis. He has been afebrile. Objective - Vital Signs Vital signs: Vital Signs Temp 98.8 F 05/25/24 07:19 Pulse 78 05/25/24 07:19 Resp 16 05/25/24 07:19 BP 127/60 05/25/24 07:19 Pulse Ox 98 05/25/24 07:19 FiO2 Intake & Output 05/24/24 05/25/24 05/25/24 18:59 06:59 18:59 Intake Total 358 Output Total 625 Balance 358 -625 Intake: Oral 358 Output: Urine 625 Other: # Voids 1 2 - Exam General appearance: The patient is alert, oriented, appears in no acute distress. HET: Head is normocephalic and atraumatic. Pupils are equal and reactive. Neck: Supple. Heart: Regular. Lungs: Equal expansion, normal respiratory effort. Abdomen: Soft, nontender, nondistended. Extremities: Palpable bilateral femoral pulses. Left lower extremity edema, cellulitis. Left foot with dressing with drainage. Neurological: No focal deficits. Strength and sensation are grossly intact. - Labs CBC & Chem 7: 05/24/24 05:17 05/24/24 05:17 Labs: Abnormal Lab Results - Last 24 Hours (Table) 05/24/24 05/24/24 Range/Units 05:17 05:17 RBC 3.56 L (4.40-5.60) X 10*6/uL Hgb 11.3 L (13.0-17.0) g/dL Hct 32.2 L (39.6-50.0) % MPV 8.7 L (9.5-12.2) FL Immature Gran # 0.05 H (0.00-0.04) X 10*3/uL Monocytes # 1.71 H (0.20-1.00) X 10*3/uL Sodium 134 L (135-145) mmol/L Carbon Dioxide 20.1 L (21.6-31.8) mmol/L Anion Gap 13.90 H (4.00-12.00) mmol/L BUN 8.3 L (9.0-27.0) mg/dL BUN/Creatinine Ratio 11.86 L (12.00-20.00) Ratio AST 42 H (14-35) U/L ALT 78 H (10-49) U/L Alkaline Phosphatase 313 H (41-126) U/L C-Reactive Protein 5.70 H (0.00-0.80) mg/dL Albumin/Globulin Ratio 1.56 L (1.60-3.17) Ratio Assessment and Plan Assessment: 1. Left great toe ischemia with gangrene status post amputation 2. Postop day #3 for left SFA revascularization 3. Left lower extremity cellulitis 4. Left lower extremity edema 5. Chronic tobacco use 6. Hypertension Plan: 1. Continue local wound care 2. Recommend follow-up with formal wound care, patient will be doing wound care in [place] 3. Antibiotics per recommendations from infectious disease 4. Elevate left lower extremity to help improve swelling Thank you for this consultation, patient is cleared from vascular surgery for discharge. Follow-up with Dr. Lu in 2 weeks. The impression and plan of care has been dictated as directed. I performed a history and examination of this patient, discussed the same with the dictator. I agree with the dictator's note ,documented as a scribe. Any additional findings or plans will be noted.
--- NOTE | 2024-05-25 13:32 | P.DS ---
Providers Date of admission: 05/19/24 17:42 Attending physician: Khanh Quinones Consults: 05/19/24 16:12 Consult Physician Routine Consulting Provider: Rosalba Stokes Consult Reason/Comments: cellulitis Do you want consulting provider notified?: Yes 05/19/24 16:19 Consult Physician Routine Consulting Provider: Brandon Park Consult Reason/Comments: left foot infection Do you want consulting provider notified?: Yes 05/20/24 10:00 Consult Physician Routine Consulting Provider: Katie Lu Consult Reason/Comments: left foot wound Do you want consulting provider notified?: Already Contacted Primary care physician: Valentin Manrique MD Hospital Course: Final Diagnosis Nonhealing left first toe wound with surrounding cellulitis and sepsis on admission Left great toe ischemia with gangrene status post amputation Hypertension Peripheral arterial disease severe with revascularization of the SFA on the left Chronic nicotine use Discharge Disposition patient stable for discharge home. He will be returning home with residential home care as well as [facility] infusion for the IV Zosyn which we will continue for the next 5 weeks through the left upper extremity PICC line. As mentioned patient will continue with local wound care to the left wound site with Medihoney and saline moistened gauze and wrap with Kerlix. Patient will follow- up with that ask wound care. Patient to follow-up with Dr. Stokes and Dr. Lu with vascular services in the office. Has been counseled extensively on smoking cessation to promote healing. He is agreeable to a nicotine patch taper on discharge. Needs to repeat blood work. Follow up with PCP Dr. Valentin Manrique 2 to 3 days. Hospital Course Patient is a 69-year-old male with past medical history of hypertension presented to the emergency department due to left foot infection. He states that he has had ongoing redness and infection in his left great toe for 2.5 weeks. He states that it started as a small sore on the top of his foot that pr ogressed to between his first and second toes. Him and his have been treating it with topical antifungal with no relief. He endorses worsening redness and swelling of the left foot extending up to the left mid-leg and dull, aching pain without radiation. He ambulates well normally with a cane and has full sensation of his feet. He denies fever, chills, nausea, vomiting, chest pain, dyspnea. WBCs 11.6, hemoglobin 13.2, platelets 472, ESR 43, sodium 127, potassium 5.1, CO2 17, creatinine 0.67, CRP 3.4. She was admitted to the hospital medical services with infectious disease and vascular consultation. Patient went for amputation of the left great toe. Had CT angiogram which reveals occlusion of the left SFA and moderate stenosis of the distal right SFA and high-grade stenosis of the popliteal artery. Patient underwent revascularization of the left SFA and has been started on aspirin and plavix. He continues to have some lower extremity edema on the left encouraged to elevate while sitting. He does state the pain is better when the foot is hanging more dependent. Surgical cultures come back polymicrobial with anearococcus vaginalis, alcaligen faecalis, enterococcus casseliflavus group D, and staphylococcus aureus. WBC remains normal at 9.17, sodium 135. He had PICC line placed in the left upper extremity and will be discharging to continue course of IV antibiotics with IV zosyn for 5 more weeks. Local wound care to continue with Hydrogel, 4x4 and kerlix. Patient should cleanse wound apply metahoney the saline moistened 4 x 4 and wrap. He will continue to be elevated by wound care on discharge and patient and family prefer to follow up in [facility] near their home. He has no acute complaints at this time and is hemodynamically stable. Please see medication reconciliation for a list of current medications. Thank you for allowing us to participate in the care of this patient. The impression and plan of care has been dictated by Bere Chavez, Nurse Practitioner as directed. Dr. Chloe MD I have performed a history and physical examination and medical decision making of this patient, discussed the same with the dictator, and agree with the dictators assessment and plan as written, documented as a scribe. Based on total visit time, I have performed more than 50% of this visit. Patient Condition at Discharge: Fair Plan - Discharge Summary Discharge Rx Participant: No New Discharge Prescriptions: New Aspirin 81 mg PO DAILY #30 tab Nicotine 14Mg/24Hr Patch [Habitrol] 1 patch TRANSDERM DAILY #7 patch HYDROcodone/APAP 5-325MG [[place] 5-325] 1 each PO Q6HR PRN 3 Days #12 tab PRN Reason: Pain Nicotine 7Mg/24Hr Patch [Habitrol] 1 patch TRANSDERM DAILY #7 patch Clopidogrel [Plavix] 75 mg PO DAILY #30 tab lisinopriL [Zestril] 20 mg PO HS #30 tab Piperacillin-Tazobactam [Zosyn] 3.375 gm IVPB Q8HR each Continue Elderberry(Unknown Dose) 1 tab PO W/SUPPER Acetaminophen Tab [Tylenol] 1,000 mg PO Q6HR PRN PRN Reason: Pain amLODIPine [Norvasc] 10 mg PO DAILY Ascorbic Acid [Vitamin C] 500 mg PO W/SUPPER Cholecalciferol [Vitamin D3 (25 Mcg = 1000 Iu)] 25 mcg PO W/SUPPER Magnesium Oxide [Magnesium] 500 mg PO W/SUPPER Mv-Min/Folic/K1/Lycopen/Lutein [Centrum Silver Men Tablet] 1 tab PO W/SUPPER Zinc Gluconate [Zinc] 50 mg PO W/SUPPER Discontinued Aleve Back & Muscle Pain 1 tab PO BID lisinopriL 40 mg PO HS Discharge Medication List Acetaminophen Tab [Tylenol] 1,000 mg PO Q6HR PRN 05/19/24 [History] Ascorbic Acid [Vitamin C] 500 mg PO W/SUPPER 05/19/24 [History] Cholecalciferol [Vitamin D3 (25 Mcg = 1000 Iu)] 25 mcg PO W/SUPPER 05/19/24 [History] Elderberry(Unknown Dose) 1 tab PO W/SUPPER 05/19/24 [History] Magnesium Oxide [Magnesium] 500 mg PO W/SUPPER 05/19/24 [History] Mv-Min/Folic/K1/Lycopen/Lutein [Centrum Silver Men Tablet] 1 tab PO W/SUPPER 05/19/24 [History] Zinc Gluconate [Zinc] 50 mg PO W/SUPPER 05/19/24 [History] amLODIPine [Norvasc] 10 mg PO DAILY 05/19/24 [History] Aspirin 81 mg PO DAILY #30 tab 05/25/24 [Rx] Clopidogrel [Plavix] 75 mg PO DAILY #30 tab 05/25/24 [Rx] HYDROcodone/APAP 5-325MG [[place] 5-325] 1 each PO Q6HR PRN 3 Days #12 tab 05/25/24 [Rx] Nicotine 14Mg/24Hr Patch [Habitrol] 1 patch TRANSDERM DAILY #7 patch 05/25/24 [Rx] Nicotine 7Mg/24Hr Patch [Habitrol] 1 patch TRANSDERM DAILY #7 patch 05/25/24 [Rx] Piperacillin-Tazobactam [Zosyn] 3.375 gm IVPB Q8HR each 05/25/24 [Rx] lisinopriL [Zestril] 20 mg PO HS #30 tab 05/25/24 [Rx] Follow up Appointment(s)/Referral(s): Katie Lu DO [STAFF PHYSICIAN] - 2 Weeks Valentin Manrique MD [Primary Care Provider] - 1-2 days [facility], [REFERRING] - 1 Week [facility] [NON-STAFF] - As Needed ([facility] will call you to schedule your in home nursing visits. ) Rosalba Stokes MD [STAFF PHYSICIAN] - 1 Week Ambulatory/Diagnostic Orders: Basic Metabolic Panel [LAB.AMB] Time Frame: 4 Days, Location: None Selected Complete Blood Count w/diff [LAB.AMB] Location: None Selected Patient Instructions/Handouts: How to Stop Smoking (DC) Activity/Diet/Wound Care/Special Instructions: Follow up with [place] wound care [facility] [address], [address] [place] [address] Do not smoking cigarettes while using the nicotine patch Complete 7 days of the 14 mg patch and then transition to the 7 mg patch for 7 days. Please follow up with your primary provider for additional pain medications. Discharge Disposition: HOME WITH HOME HEALTH SERVICES
--- NOTE | 2024-05-25 14:07 | P.PN ---
Subjective Progress Note Date: 05/25/24 Principal diagnosis: Reason for follow-up is left big toe and foot cellulitis Patient is a 69-year-old male with a past medical history significant for hypertension current everyday smoker and this patient has been dealing with a left big toe nail fungal infection that subsequently fell off however the patient has been dealing with the left big toe discoloration with some swelling and redness, admitted to hospital with cellulitis left big toe. Patient is status post left big toe amputation concerning for ischemia cultures obtained on 05/20/2024 subsequently the patient did have percutaneous transluminal balloon angioplasty of the left superficial femoral artery and popliteal artery on 05/22/2024. On today's evaluation that is 05/25/2024,the patient remains to be afebrile, patient is on room air not requiring supplemental oxygen and denies any shortness of breath no chest pain or cough.Patient denies having any nausea or vomiting, no abdominal pain and no diarrhea has been reported, denies pain to the foot wound area. No new lab has been obtained today Objective - Vital Signs Vital signs: Vital Signs Temp 98.8 F 05/25/24 07:19 Pulse 78 05/25/24 07:19 Resp 16 05/25/24 07:19 BP 127/60 05/25/24 07:19 Pulse Ox 98 05/25/24 07:19 FiO2 Intake & Output 05/24/24 05/25/24 05/25/24 18:59 06:59 18:59 Intake Total 358 118 Output Total 625 2 Balance 358 -625 116 Intake: Oral 358 118 Output: Urine 625 Stool 2 Other: # Voids 1 2 3 - Exam GENERAL DESCRIPTION: An elderly male lying in bed in no distress RESPIRATORY SYSTEM: Unlabored breathing , decreased breath sounds at bases HEART: S1 S2 regular rate and rhythm , ABDOMEN: Soft , no tenderness EXTREMITIES: Left foot wound is currently dressed minimal drainage on the dressing - Labs CBC & Chem 7: 05/24/24 05:17 05/24/24 05:17 Assessment and Plan (1) Cellulitis of left foot Status: Acute Code(s): L03.116 - CELLULITIS OF LEFT LOWER LIMB SNOMED Code(s): 64627747637712272 (2) Osteomyelitis of left foot Status: Acute Code(s): M86.9 - OSTEOMYELITIS, UNSPECIFIED SNOMED Code(s): 8968685004272353 Plan: 1patient presenting to the hospital with the left foot big toe dorsal ulceration and concern for cellulitis that has been going on for the last 2 weeks we will need to cover for the gram-positive skin sha and less likely gram-negative infection. 2patient is status post left big toe amputation concerning mostly for ischemia than infection as per discussion with the vascular surgeon however culture has been obtained subsequently did have angioplasty to left lower extremity 3patient culture did grew Enterococcus faecalis and MSSA also growing Alcaligenes faecalis patient did have extensive wound to the left foot post debridement and amputation keeping in mind his PAD and infection patient has got a PICC line we will consider 5-week course of IV Zosyn on discharge prescription provided to the casework supervisor and close outpatient follow-up Dictation was produced using [employer] dictation software. please excuse any grammatical, word or spelling errors. Time with Patient: Less than 30
== END 2024-05-25 13:40 | disposition home health service (06) | DRG 854 ==
LOC: EC 14:05 → 4SSUR 17:42 → 6NMEDSUR 05-22 13:19
PROVIDERS: ADMIT Hospitalist; ATTEND Hospitalist
PROC: 0Y6Q0Z0 Detachment at Left 1st Toe, Complete, Open Approach (ICD-10-PCS; principal; 2024-05-20 16:20)
PROC: 047N3ZZ Dilation of Left Popliteal Artery, Percutaneous Approach (ICD-10-PCS; 2024-05-22)
PROC: B41D1ZZ Fluoroscopy of Aorta and Bilateral Lower Extremity Arteries using Low Osmolar Contrast (ICD-10-PCS; 2024-05-22)
PROC: 047L3DZ Dilation of Left Femoral Artery with Intraluminal Device, Percutaneous Approach (ICD-10-PCS; 2024-05-22)
PROC: 02HV33Z Insertion of Infusion Device into Superior Vena Cava, Percutaneous Approach (ICD-10-PCS; 2024-05-24)
DX: A41.01 Sepsis due to Methicillin susceptible Staphylococcus aureus (principal); I70.262 Atherosclerosis of native arteries of extremities with gangrene, left leg; M86.8X7 Other osteomyelitis, ankle and foot; L97.524 Non-pressure chronic ulcer of other part of left foot with necrosis of bone; I10 Essential (primary) hypertension; B95.2 Enterococcus as the cause of diseases classified elsewhere; B95.61 Methicillin susceptible Staphylococcus aureus infection as the cause of diseases classified elsewhere; B96.89 Other specified bacterial agents as the cause of diseases classified elsewhere; F17.210 Nicotine dependence, cigarettes, uncomplicated; Z79.899 Other long term (current) drug therapy
CPT/HCPCS: 36415; 36573; 37225; 75635; 80048; 80053; 80202; 83036; 83605; 85025; 85652; 86140; 87070; 87075; 87077; 87186; 87205; 93923; 96365; 96366; 96367; 96372; 96375; 99285